=== PATIENT | female | born 1975 | race Caucasian/White ===

== ENCOUNTER 2021-05-10 14:03 | Inpatient (IN) | payer BC ==
[~2021-05-10] VITALS: Ht 165.1 cm; Wt 94.1 kg
[2021-05-10] MEDS ORDERED: SODIUM CHLORIDE 0.9% 1,000 ML IV ONE (14:45)
[2021-05-10 15:09] LABS: BASOPHILS % 0.6 % (0.0-2.0); EOSINOPHILS % 0.1 % (0.0-5.0); HEMATOCRIT. 31.8 % (36.0-48.0); HEMOGLOBIN. 10.1 g/dL (12.0-16.0); LYMPHOCYTES % 16.3 % (20.0-50.0); MEAN CORPUSCULAR HEMOGLOBIN 31.7 pg (28.0-32.0); MEAN CORPUSCULAR VOLUME 99.6 fL (81.0-99.0); MEAN PLATELET VOLUME 8.9 fl (7.4-10.4); MONOCYTES % 3.3 % (2.0-8.0); NEUTROPHILS % 79.7 % (40.0-76.0); PLATELET 159 x1000/uL (130-400); RED BLOOD CELL COUNT 3.19 mill/uL (4.2-5.4); RED CELL DISTRIBUTION WIDTH 23.3 % (11.6-14.6)
[2021-05-10 15:16] LABS: CHLORIDE 111 mEq/L (98-107)
[2021-05-10 15:21] LABS: ETHANOL BLOOD < 10 mg/dL
[2021-05-10 15:33] LABS: CLARITY URINE CLEAR (CLEAR); COLOR URINE DARK YELLOW (YELLOW); KETONES URINE NEGATIVE (NEGATIVE); LEUKOCYTE ESTERASE URINE NEGATIVE (NEGATIVE); NITRITE URINE NEGATIVE (NEGATIVE); OCCULT BLOOD URINE NEGATIVE (NEGATIVE); PH URINE 6.5 (4.5-8.0); PROTEIN URINE NEGATIVE (NEGATIVE); SPECIFIC GRAVITY URINE 1.015 (1.005-1.030); UROBILINOGEN URINE 0.2 E.U./dL (0.2-1.0)
[2021-05-10 15:34] LABS: PLATELET ESTIMATE NORMAL
[2021-05-10 16:12] LABS: *AMPHETAMINES SCREEN URINE NEGATIVE (NEGATIVE); *BARBITURATES SCREEN URINE NEGATIVE (NEGATIVE); CANNABINOID URINE SCREEN NEGATIVE (NEGATIVE); OPIATES URINE SCREEN NEGATIVE (NEGATIVE); PHENCYCLIDINE URINE SCREEN NEGATIVE (NEGATIVE)
[2021-05-10 16:13] LABS: *BENZODIAZEPINES SCREEN URINE NEGATIVE (NEGATIVE); *COCAINE SCREEN URINE NEGATIVE (NEGATIVE); METHADONE URINE SCREEN NEGATIVE (NEGATIVE)
[2021-05-10] MEDS ORDERED: AZITHROMYCIN 500 MG in DEXT 5% WATER 250 ML IV ONE (17:15)
[2021-05-10] MEDS ORDERED: SODIUM CHLORIDE 0.9% 1000ML BAG (SEPSIS BOLUS) IV ONE (17:15)
[2021-05-10] MEDS ORDERED: LACTULOSE 20G/30ML UDC PO ONE (17:15)
[2021-05-10] MEDS ORDERED: CEFTRIAXONE 1 G PREMIX 50 ML IV ONE (17:15)
[2021-05-10] MEDS ORDERED: ONDANSETRON HCL 4MG/2ML INJ IV STA (19:23)
[2021-05-10] MEDS ORDERED: MORPHINE SULFATE 4 MG/ML CPJ (NOT FOR IM USE) IV STA (19:23)
[2021-05-10 23:00] VITALS: BP 151/68
[2021-05-10] MEDS ORDERED: DULO60CA44 PO (23:07)
[2021-05-10] MEDS ORDERED: CALC-1249 PO (23:07)
[2021-05-10] MEDS ORDERED: FERR-71 PO (23:07)
[2021-05-10] MEDS ORDERED: LACT10SO7 PO (23:07)
[2021-05-10] MEDS ORDERED: LEVO75TA PO (23:07)
[2021-05-10] MEDS ORDERED: FURO-151 PO (23:07)
[2021-05-10] MEDS ORDERED: KEPP500 PO (23:07)
[2021-05-10] MEDS ORDERED: ACET600C5 PO (23:07)
[2021-05-10] MEDS ORDERED: ESCI20TA PO (23:07)
[2021-05-10] MEDS ORDERED: LACT1CAP56 PO (23:07)
[2021-05-10] MEDS ORDERED: GARL600T2 PO (23:07)
[2021-05-10] MEDS ORDERED: MAGN100T6 PO (23:07)
[2021-05-10] MEDS ORDERED: FOLI-43 PO (23:07)
[2021-05-10] MEDS ORDERED: MELA10TA3 PO (23:07)
[2021-05-10] MEDS ORDERED: POTA-79 PO (23:20)
[2021-05-10] MEDS ORDERED: THIA100T88 PO (23:20)
[2021-05-10] MEDS ORDERED: PREG150C PO (23:20)
[2021-05-10] MEDS ORDERED: SPIR50TA5 PO (23:20)
[2021-05-10] MEDS ORDERED: SUCR1TAB30 PO (23:20)
[2021-05-10] MEDS ORDERED: PANT40SU PO (23:20)
[2021-05-10] MEDS ORDERED: PRED10TA23 PO (23:20)
[2021-05-10] MEDS ORDERED: DICY10SO PO (23:20)
[2021-05-10] MEDS ORDERED: OXYC-662 PO (23:20)
[2021-05-10] MEDS ORDERED: RIFA550T PO (23:20)
[2021-05-10] MEDS ORDERED: BENZ-16 PO (23:20)
[2021-05-10] MEDS ORDERED: SUMA100T PO (23:25)
[2021-05-10] MEDS ORDERED: PROM12.513 PO (23:25)
[2021-05-10] MEDS ORDERED: ALBU18HF2 IH (23:25)
[2021-05-10] MEDS ORDERED: TIZA4TAB5 PO (23:25)
[2021-05-11] VITALS: BP 139/62
[2021-05-11] MEDS ORDERED: ONDANSETRON HCL 4MG/2ML INJ IV PRN (00:30)
[2021-05-11] MEDS ORDERED: HYDROCODONE/ACETAMINOPHEN 5/325MG TABLET PO PRN (00:30)
[2021-05-11] MEDS ORDERED: ACETAMINOPHEN 325MG TABLET PO PRN (00:30)
[2021-05-11] MEDS: LORAZEPAM 2MG/ML CPJ IV PRN (00:58)
[2021-05-11] MEDS ORDERED: LEVETIRACETAM 500MG TABLET PO SCH (01:45)
[2021-05-11] MEDS ORDERED: PREGABALIN 75MG CAPSULE PO SCH (01:45)
[2021-05-11] MEDS ORDERED: DICYCLOMINE HCL 10MG CAPSULE PO PRN ×2 (03:00→21:30)
[2021-05-11 04:00] VITALS: BP 156/80
[2021-05-11] MEDS: LACTULOSE 20G/30ML UDC PO SCH ×3 (05:29→22:18)
[2021-05-11] MEDS: HEPARIN 5000 UNITS/ML VIAL SUBCUT SCH ×3 (05:29→22:24)
[2021-05-11 06:06] LABS: CHLORIDE 111 mEq/L (98-107)
[2021-05-11 06:19] LABS: BASOPHILS % 0.5 % (0.0-2.0); EOSINOPHILS % 1.9 % (0.0-5.0); HEMATOCRIT. 32.1 % (36.0-48.0); HEMOGLOBIN. 10.3 g/dL (12.0-16.0); LYMPHOCYTES % 24.4 % (20.0-50.0); MEAN CORPUSCULAR HEMOGLOBIN 31.9 pg (28.0-32.0); MEAN CORPUSCULAR VOLUME 100.1 fL (81.0-99.0); MEAN PLATELET VOLUME 8.6 fl (7.4-10.4); MONOCYTES % 5.5 % (2.0-8.0); NEUTROPHILS % 67.7 % (40.0-76.0); PLATELET 151 x1000/uL (130-400); RED BLOOD CELL COUNT 3.21 mill/uL (4.2-5.4); RED CELL DISTRIBUTION WIDTH 23.1 % (11.6-14.6)
[2021-05-11 08:00] VITALS: BP 146/74
[2021-05-11] MEDS: PREDNISONE 10MG TABLET PO SCH (08:09)
[2021-05-11] MEDS: PREGABALIN 75MG CAPSULE PO SCH ×2 (08:09→23:56)
[2021-05-11] MEDS: LEVETIRACETAM 500MG TABLET PO SCH ×2 (08:09→22:17)
[2021-05-11] MEDS: DULOXETINE HCL 60MG DR CAPSULE PO SCH (08:09)
[2021-05-11] MEDS: POTASSIUM CHLORIDE 20MEQ TABLET SR PO SCH (08:09)
[2021-05-11] MEDS: FUROSEMIDE 40MG TABLET PO SCH ×2 (08:09→22:17)
[2021-05-11] MEDS: RIFAXIMIN 550 MG TABLET PO SCH ×2 (08:09→23:42)
[2021-05-11] MEDS: PANTOPRAZOLE 40MG DR TABLET PO SCH (08:09)
[2021-05-11] MEDS: LEVOTHYROXINE SODIUM 75MCG TABLET PO SCH (08:09)
[2021-05-11] MEDS ORDERED: FUROSEMIDE 40MG TABLET PO SCH (09:00)
[2021-05-11 12:00] VITALS: BP 122/61
[2021-05-11] MEDS ORDERED: NALOXONE HCL 0.4MG/ML VIAL IV PRN (12:00)
[2021-05-11 16:00] VITALS: BP 141/69
[2021-05-11] MEDS: OXYCODONE HCL 5MG TABLET PO PRN (18:53)
[2021-05-11 20:00] VITALS: BP 124/66
[2021-05-11] MEDS ORDERED: ALBUTEROL (0.083%) 2.5MG/3ML NEB HHN PRN (21:30)
[2021-05-11] MEDS ORDERED: PROMETHAZINE HCL 25MG TABLET PO PRN (21:30)
[2021-05-11] MEDS ORDERED: NON FORMULARY PATIENT HOME MED XX SCH (21:30)
[2021-05-11] MEDS: CEFTRIAXONE 1,000 MG in DEXTROSE 5% WATER 50 ML IV SCH (22:25)
[2021-05-11] MEDS: PROMETHAZINE HCL 25MG TABLET PO PRN (23:43)
[2021-05-12] VITALS: BP 145/67
[2021-05-12] MEDS: LORAZEPAM 2MG/ML CPJ IV PRN (00:24)
[2021-05-12] MEDS: OXYCODONE HCL 5MG TABLET PO PRN ×3 (01:19→18:45)
[2021-05-12] MEDS: ALBUTEROL (0.083%) 2.5MG/3ML NEB HHN SCH ×5 (01:25→23:58)
[2021-05-12 05:30] VITALS: BP 139/94
[2021-05-12] MEDS: LEVOTHYROXINE SODIUM 75MCG TABLET PO SCH (07:00)
[2021-05-12] MEDS: PANTOPRAZOLE 40MG DR TABLET PO SCH (07:00)
[2021-05-12] MEDS: BENZONATATE 100MG CAPSULE PO PRN ×2 (07:00→22:10)
[2021-05-12] MEDS: HEPARIN 5000 UNITS/ML VIAL SUBCUT SCH ×3 (07:01→22:09)
[2021-05-12] MEDS: LACTULOSE 20G/30ML UDC PO SCH ×3 (07:01→22:08)
[2021-05-12 08:00] VITALS: BP 145/61
[2021-05-12 08:15] LABS: BG BASE EXCESS -2.6 mmol/L (-2.0-2.0); BG CARBOXYHEMOGLOBIN 0.9 % (0.5-1.5); BG DEOXYHEMOGLOBIN 2.6 % (0.0-5.0); BG FRACTION INSPIRED OXYGEN 28; BG HCO3 ACT 21.7 mmol/L (22.0-26.0); BG METHEMOGLOBIN 0.2 % (0.0-1.5); BG OXYGEN SATURATION 97.4 % (92.0-98.5); BG OXYHEMOGLOBIN 96.3 % (94.0-97.0); BG PCO2 35.3 mmHg (35.0-45.0); BG PH 7.406 (7.350-7.450); BG PO2 100.1 mmHg (75.0-100.0); BG SAMPLE SITE LEFT RADIAL; BG TOTAL HEMOGLOBIN 10.2 g/dL (12.0-18.0); BG VENT MODE NASAL CANNULA
[2021-05-12] MEDS: DULOXETINE HCL 60MG DR CAPSULE PO SCH (10:04)
[2021-05-12] MEDS: PREGABALIN 75MG CAPSULE PO SCH ×2 (10:06→22:08)
[2021-05-12] MEDS: LEVETIRACETAM 500MG TABLET PO SCH ×2 (10:08→22:10)
[2021-05-12] MEDS: POTASSIUM CHLORIDE 20MEQ TABLET SR PO SCH (10:08)
[2021-05-12] MEDS: RIFAXIMIN 550 MG TABLET PO SCH ×2 (10:09→22:16)
[2021-05-12] MEDS: PREDNISONE 10MG TABLET PO SCH (10:09)
[2021-05-12 12:00] VITALS: BP 143/61
[2021-05-12] MEDS: SPIRONOLACTONE 50MG TABLET PO SCH (13:12)
[2021-05-12] MEDS: CITALOPRAM HYDROBROMIDE 10MG TABLET PO SCH ×2 (13:13→17:12)
[2021-05-12 16:00] VITALS: BP 155/85
[2021-05-12] MEDS ORDERED: VANCOMYCIN 2,000 MG in DEXT 5% WATER 500 ML IV SCH (16:00)
[2021-05-12 16:13] LABS: CHLORIDE 105 mEq/L (98-107)
[2021-05-12] MEDS ORDERED: POTASSIUM CHLORIDE 20MEQ TABLET SR PO NR (17:00)
[2021-05-12] MEDS: FUROSEMIDE 40MG TABLET PO SCH ×2 (17:11→22:17)
[2021-05-12] MEDS ORDERED: LACTULOSE 300 ML in WATER FOR IRRIGATION,STERILE 700 ML IR NR (18:30)
[2021-05-12 20:00] VITALS: BP 128/69
[2021-05-12] MEDS: CEFTRIAXONE 1,000 MG in DEXTROSE 5% WATER 50 ML IV SCH (22:35)
[2021-05-13] VITALS: BP 142/78
[2021-05-13] MEDS: OXYCODONE HCL 5MG TABLET PO PRN ×3 (00:48→16:23)
[2021-05-13 04:00] VITALS: BP 158/90
[2021-05-13] MEDS ORDERED: VANCOMYCIN 1 G PREMIX 200 ML IV SCH ×2 (04:00→17:00)
[2021-05-13 06:14] LABS: BASOPHILS % 0.9 % (0.0-2.0); EOSINOPHILS % 2.4 % (0.0-5.0); HEMATOCRIT. 30.3 % (36.0-48.0); HEMOGLOBIN. 9.6 g/dL (12.0-16.0); LYMPHOCYTES % 19.3 % (20.0-50.0); MEAN CORPUSCULAR HEMOGLOBIN 31.6 pg (28.0-32.0); MEAN CORPUSCULAR VOLUME 99.9 fL (81.0-99.0); MEAN PLATELET VOLUME 9.4 fl (7.4-10.4); MONOCYTES % 6.2 % (2.0-8.0); NEUTROPHILS % 71.2 % (40.0-76.0); PLATELET 131 x1000/uL (130-400); RED BLOOD CELL COUNT 3.03 mill/uL (4.2-5.4); RED CELL DISTRIBUTION WIDTH 21.7 % (11.6-14.6)
[2021-05-13 06:19] LABS: CHLORIDE 108 mEq/L (98-107)
[2021-05-13] MEDS: LACTULOSE 20G/30ML UDC PO SCH ×3 (06:24→20:33)
[2021-05-13] MEDS: PANTOPRAZOLE 40MG DR TABLET PO SCH (06:25)
[2021-05-13] MEDS: LEVOTHYROXINE SODIUM 75MCG TABLET PO SCH (06:25)
[2021-05-13] MEDS: HEPARIN 5000 UNITS/ML VIAL SUBCUT SCH ×3 (06:47→20:33)
[2021-05-13 08:00] VITALS: BP 132/78
[2021-05-13] MEDS: PREDNISONE 10MG TABLET PO SCH (08:58)
[2021-05-13] MEDS: DULOXETINE HCL 60MG DR CAPSULE PO SCH (08:58)
[2021-05-13] MEDS: FUROSEMIDE 40MG TABLET PO SCH ×2 (08:58→20:33)
[2021-05-13] MEDS: SPIRONOLACTONE 50MG TABLET PO SCH (08:58)
[2021-05-13] MEDS: RIFAXIMIN 550 MG TABLET PO SCH ×2 (08:58→20:33)
[2021-05-13] MEDS: PREGABALIN 75MG CAPSULE PO SCH ×2 (08:59→20:33)
[2021-05-13] MEDS: CITALOPRAM HYDROBROMIDE 10MG TABLET PO SCH ×2 (08:59→16:13)
[2021-05-13] MEDS: POTASSIUM CHLORIDE 20MEQ TABLET SR PO SCH (08:59)
[2021-05-13] MEDS: LEVETIRACETAM 500MG TABLET PO SCH ×2 (09:39→20:33)
[2021-05-13] MEDS: ALBUTEROL (0.083%) 2.5MG/3ML NEB HHN SCH ×3 (09:53→19:51)
[2021-05-13 12:00] VITALS: BP 136/67
[2021-05-13] MEDS ORDERED: PANTOPRAZOLE 40MG DR TABLET PO SCH (13:15)
[2021-05-13] MEDS: SUMATRIPTAN SUCCINATE 25MG TABLET PO PRN (14:50)
[2021-05-13] MEDS: LORAZEPAM 2MG/ML CPJ IV PRN ×2 (15:29→21:34)
[2021-05-13 16:00] VITALS: BP 146/68
[2021-05-13] MEDS: PROMETHAZINE HCL 25MG TABLET PO PRN (16:13)
[2021-05-13 20:00] VITALS: BP 164/74
[2021-05-13] MEDS: CEFTRIAXONE 1,000 MG in DEXTROSE 5% WATER 50 ML IV SCH (20:08)
[2021-05-14] VITALS: BP 160/83
[2021-05-14] MEDS: ALBUTEROL (0.083%) 2.5MG/3ML NEB HHN SCH ×3 (01:57→12:24)
[2021-05-14 04:00] VITALS: BP 131/68
[2021-05-14] MEDS: LACTULOSE 20G/30ML UDC PO SCH ×2 (05:44→13:09)
[2021-05-14] MEDS: LEVOTHYROXINE SODIUM 75MCG TABLET PO SCH (05:44)
[2021-05-14] MEDS: HEPARIN 5000 UNITS/ML VIAL SUBCUT SCH ×2 (05:44→13:08)
[2021-05-14] MEDS: OXYCODONE HCL 5MG TABLET PO PRN ×2 (06:13→13:09)
[2021-05-14] MEDS: SUMATRIPTAN SUCCINATE 25MG TABLET PO PRN (06:23)
[2021-05-14] MEDS ORDERED: PANTOPRAZOLE 40MG DR TABLET PO SCH (06:40)
[2021-05-14 07:32] LABS: CHLORIDE 108 mEq/L (98-107)
[2021-05-14 08:00] VITALS: BP 143/69
[2021-05-14] MEDS ORDERED: POTASSIUM CHLORIDE 20MEQ TABLET SR PO NR ×2 (08:39→14:30)
[2021-05-14] MEDS: PREGABALIN 75MG CAPSULE PO SCH (08:53)
[2021-05-14] MEDS: CITALOPRAM HYDROBROMIDE 10MG TABLET PO SCH (08:54)
[2021-05-14] MEDS: LEVETIRACETAM 500MG TABLET PO SCH (08:54)
[2021-05-14] MEDS: DULOXETINE HCL 60MG DR CAPSULE PO SCH (08:54)
[2021-05-14] MEDS: PREDNISONE 10MG TABLET PO SCH (08:54)
[2021-05-14] MEDS: SPIRONOLACTONE 50MG TABLET PO SCH (08:54)
[2021-05-14] MEDS: POTASSIUM CHLORIDE 20MEQ TABLET SR PO SCH (08:55)
[2021-05-14] MEDS: RIFAXIMIN 550 MG TABLET PO SCH (08:55)
[2021-05-14] MEDS: FUROSEMIDE 40MG TABLET PO SCH (08:55)
[2021-05-14] MEDS: LORAZEPAM 2MG/ML CPJ IV PRN (09:08)
[2021-05-14] MEDS ORDERED: ACETAMINOPHEN 325MG TABLET PO PRN (13:15)
[2021-05-14] MEDS ORDERED: LORAZEPAM 0.5MG TABLET PO NR (14:15)
[2021-05-14 14:19] VITALS: BP 120/66
== END 2021-05-14 15:10 | disposition home or self-care (01) | DRG 853 ==
LOC: ER 14:03 → 7WST 19:48 → ENRESERV 20:42 → 7EST 05-11 15:01
PROVIDERS: ADMIT Internal Medicine; ATTEND Internal Medicine
PROC: 0JBQ0ZZ Excision of Right Foot Subcutaneous Tissue and Fascia, Open Approach (ICD-10-PCS; principal; 2021-05-12)
DX: A41.9 Sepsis, unspecified organism (principal); J18.9 Pneumonia, unspecified organism; E43 Unspecified severe protein-calorie malnutrition; G93.41 Metabolic encephalopathy; T81.31XA Disruption of external operation (surgical) wound, not elsewhere classified, initial encounter; E87.2 Acidosis; D64.9 Anemia, unspecified; E66.9 Obesity, unspecified; E87.6 Hypokalemia; G40.909 Epilepsy, unspecified, not intractable, without status epilepticus; I10 Essential (primary) hypertension; K70.30 Alcoholic cirrhosis of liver without ascites; M79.7 Fibromyalgia; E87.8 Other disorders of electrolyte and fluid balance, not elsewhere classified; K72.90 Hepatic failure, unspecified without coma; G43.909 Migraine, unspecified, not intractable, without status migrainosus; R65.20 Severe sepsis without septic shock; Y83.8 Other surgical procedures as the cause of abnormal reaction of the patient, or of later complication, without mention of misadventure at the time of the procedure; Z20.822 Contact with and (suspected) exposure to COVID-19; Z91.81 History of falling; Y92.89 Other specified places as the place of occurrence of the external cause; Z68.34 Body mass index [BMI] 34.0-34.9, adult
CPT/HCPCS: 36415; 36600; 71045; 76700; 80048; 80053; 80202; 80305; 80320; 81003; 82140; 82375; 82805; 82962; 83605; 84145; 84484; 85025; 93005; 94640; 97161; 99291; C1893; J0456; J0696; J1644; J2060; J2405; J3370; J7030; J7040; J7060; J7512; Q0169; U0003; U0005; G0480

== ENCOUNTER 2021-05-14 23:54 | Inpatient (IN) | payer BC ==
[~2021-05-14] VITALS: Ht 170.2 cm; Wt 109.1 kg
[~2021-05-14 23:54] MED LIST: ACET600C5 PO; ALBU18HF2 IH; BENZ-16 PO; CALC-1249 PO; DICY10SO PO; DULO60CA44 PO; ESCI20TA PO; FERR-71 PO; FOLI-43 PO; FURO-151 PO; GARL600T2 PO; KEPP500 PO; LACT10SO7 PO; LACT1CAP56 PO; LEVO75TA PO; MAGN100T6 PO; MELA10TA3 PO; OXYC-662 PO; PANT40SU PO; POTA-79 PO; PRED10TA23 PO; PREG150C PO; PROM12.513 PO; RIFA550T PO; SPIR50TA5 PO; SUCR1TAB30 PO; SUMA100T PO; THIA100T88 PO; TIZA4TAB5 PO
[2021-05-15] MEDS ORDERED: MORPHINE SULFATE 4 MG/ML CPJ (NOT FOR IM USE) IV STA (00:01)
[2021-05-15] MEDS ORDERED: ONDANSETRON HCL 4MG/2ML INJ IV STA (00:01)
[2021-05-15] MEDS ORDERED: MIDAZOLAM HCL 50 MG in DEXTROSE 5% WATER 40 ML IV ONE ×2 (00:15→03:00)
[2021-05-15] MEDS ORDERED: PROPOFOL 10MG/ML 100ML 100 ML IV ONE ×2 (00:15→03:00)
[2021-05-15] MEDS ORDERED: SUCCINYLCHOLINE CHLORIDE 200MG/10ML IV ONE ×3 (00:15→08:58)
[2021-05-15] MEDS ORDERED: ETOMIDATE 2MG/ML 10ML VIAL IV ONE ×3 (00:15→08:58)
[2021-05-15 00:47] LABS: BASOPHILS % 0.3 % (0.0-2.0); EOSINOPHILS % 2.6 % (0.0-5.0); HEMOGLOBIN. 9.9 g/dL (12.0-16.0); LYMPHOCYTES % 17.9 % (20.0-50.0); MEAN CORPUSCULAR HEMOGLOBIN 32.1 pg (28.0-32.0); MEAN PLATELET VOLUME 8.4 fl (7.4-10.4); NEUTROPHILS % 71.2 % (40.0-76.0); PLATELET 132 x1000/uL (130-400); RED BLOOD CELL COUNT 3.07 mill/uL (4.2-5.4); RED CELL DISTRIBUTION WIDTH 21.2 % (11.6-14.6)
[2021-05-15] MEDS: MIDAZOLAM HCL 100 MG in SODIUM CHLORIDE 0.9% 100 ML IV PRN ×3 (00:49→23:13)
[2021-05-15 00:53] LABS: CHLORIDE 108 mEq/L (98-107)
[2021-05-15 05:04] LABS: BG BASE EXCESS 2.8 mmol/L (-2.0-2.0); BG CARBOXYHEMOGLOBIN 0.9 % (0.5-1.5); BG DEOXYHEMOGLOBIN 0.9 % (0.0-5.0); BG FRACTION INSPIRED OXYGEN 50; BG HCO3 ACT 28.5 mmol/L (22.0-26.0); BG METHEMOGLOBIN 0.1 % (0.0-1.5); BG OXYGEN SATURATION 99.1 % (92.0-98.5); BG OXYHEMOGLOBIN 98.1 % (94.0-97.0); BG PCO2 49.8 mmHg (35.0-45.0); BG PH 7.376 (7.350-7.450); BG PO2 151.8 mmHg (75.0-100.0); BG SAMPLE SITE LEFT BRACHIAL; BG TOTAL HEMOGLOBIN 9.5 g/dL (12.0-18.0); BG VENT MODE VENT - AC
[2021-05-15] MEDS ORDERED: PROPOFOL 10MG/ML 100ML 100 ML IV SCH (08:15)
[2021-05-15] MEDS ORDERED: SODIUM CHLORIDE 0.9% 10ML VIAL ONE (08:58)
[2021-05-15] MEDS ORDERED: VECURONIUM BROMIDE 10 MG/VIAL IV ONE (08:58)
[2021-05-15] MEDS: PROPOFOL 10MG/ML 100ML 100 ML IV PRN ×2 (09:12→16:04)
[2021-05-15] MEDS ORDERED: ONDANSETRON HCL 4MG/2ML INJ IV PRN (09:15)
[2021-05-15] MEDS ORDERED: CEFTRIAXONE 1 G PREMIX 50 ML IV NR (09:15)
[2021-05-15] MEDS: SODIUM CHLORIDE 0.9% 1,000 ML IV SCH ×2 (09:57→19:51)
[2021-05-15] MEDS: CEFEPIME 2,000 MG in DEXT 5% WATER 100 ML IV SCH (16:04)
[2021-05-15 17:19] LABS: *AMPHETAMINES SCREEN URINE NEGATIVE (NEGATIVE); *BARBITURATES SCREEN URINE NEGATIVE (NEGATIVE); *COCAINE SCREEN URINE NEGATIVE (NEGATIVE); METHADONE URINE SCREEN NEGATIVE (NEGATIVE)
[2021-05-15 17:20] LABS: *BENZODIAZEPINES SCREEN URINE PRESUMTIVE POSITIVE (NEGATIVE); CANNABINOID URINE SCREEN NEGATIVE (NEGATIVE); OPIATES URINE SCREEN PRESUMTIVE POSITIVE (NEGATIVE); PHENCYCLIDINE URINE SCREEN NEGATIVE (NEGATIVE)
[2021-05-16] MEDS: CEFEPIME 2,000 MG in DEXT 5% WATER 100 ML IV SCH ×3 (00:36→14:36)
[2021-05-16 04:38] LABS: BASOPHILS % 0.3 % (0.0-2.0); EOSINOPHILS % 3.9 % (0.0-5.0); HEMATOCRIT. 29.8 % (36.0-48.0); HEMOGLOBIN. 9.1 g/dL (12.0-16.0); LYMPHOCYTES % 13.5 % (20.0-50.0); MEAN CORPUSCULAR HEMOGLOBIN 31.9 pg (28.0-32.0); MEAN PLATELET VOLUME 8.9 fl (7.4-10.4); MONOCYTES % 9.5 % (2.0-8.0); NEUTROPHILS % 72.8 % (40.0-76.0); PLATELET 112 x1000/uL (130-400); RED BLOOD CELL COUNT 2.87 mill/uL (4.2-5.4); RED CELL DISTRIBUTION WIDTH 22.1 % (11.6-14.6)
[2021-05-16 04:43] LABS: CHLORIDE 111 mEq/L (98-107)
[2021-05-16 04:51] LABS: HDL CHOLESTEROL 43 mg/dL (40-59); LDL CHOLESTEROL 73 mg/dL (5-100)
[2021-05-16] MEDS: SODIUM CHLORIDE 0.9% 1,000 ML IV SCH ×2 (05:19→15:16)
[2021-05-16 08:22] LABS: BG CARBOXYHEMOGLOBIN 0.6 % (0.5-1.5); BG DEOXYHEMOGLOBIN 1.7 % (0.0-5.0); BG HCO3 ACT 23.7 mmol/L (22.0-26.0); BG OXYGEN SATURATION 98.3 % (92.0-98.5); BG OXYHEMOGLOBIN 97.7 % (94.0-97.0); BG PCO2 34.7 mmHg (35.0-45.0); BG PH 7.452 (7.350-7.450); BG PO2 115.6 mmHg (75.0-100.0); BG SAMPLE SITE RIGHT RADIAL; BG TOTAL HEMOGLOBIN 9.9 g/dL (12.0-18.0); BG VENT MODE VENT - AC
[2021-05-16] MEDS ORDERED: PROPOFOL 10 MG/ML 100 ML IV PRN (08:31)
[2021-05-16] MEDS ORDERED: CEFTRIAXONE 1,000 MG in DEXTROSE 5% WATER 50 ML IV SCH (09:00)
[2021-05-16] MEDS: METRONIDAZOLE 500 MG PREMIX 100 ML IV SCH (18:23)
[2021-05-16] MEDS: MIDAZOLAM HCL 100 MG in SODIUM CHLORIDE 0.9% 100 ML IV PRN (18:24)
[2021-05-17] MEDS: METRONIDAZOLE 500 MG PREMIX 100 ML IV SCH ×3 (01:27→17:12)
[2021-05-17] MEDS: CEFEPIME 2,000 MG in DEXT 5% WATER 100 ML IV SCH ×3 (01:29→21:44)
[2021-05-17] MEDS: SODIUM CHLORIDE 0.9% 1,000 ML IV SCH ×2 (01:30→11:38)
[2021-05-17] MEDS: MIDAZOLAM HCL 100 MG in SODIUM CHLORIDE 0.9% 100 ML IV PRN ×2 (04:53→15:41)
[2021-05-17 05:12] LABS: CHLORIDE 114 mEq/L (98-107)
[2021-05-17 05:15] LABS: BASOPHILS % 0.2 % (0.0-2.0); HEMATOCRIT. 29.4 % (36.0-48.0); HEMOGLOBIN. 9.5 g/dL (12.0-16.0); LYMPHOCYTES % 12.8 % (20.0-50.0); MEAN CORPUSCULAR HEMOGLOBIN 32.1 pg (28.0-32.0); MEAN CORPUSCULAR VOLUME 99.6 fL (81.0-99.0); MONOCYTES % 9.1 % (2.0-8.0); NEUTROPHILS % 74.9 % (40.0-76.0); RED BLOOD CELL COUNT 2.95 mill/uL (4.2-5.4); RED CELL DISTRIBUTION WIDTH 21.4 % (11.6-14.6)
[2021-05-17] MEDS ORDERED: FENTANYL CITRATE/PF 1,000 MCG in SODIUM CHLORIDE 0.9% 80 ML IV PRN (08:45)
[2021-05-17] MEDS ORDERED: PROPOFOL 10MG/ML 100ML 100 ML IV PRN (08:45)
[2021-05-17] MEDS ORDERED: IPRATROPIUM/ALBUTEROL 0.5-3(2.5)MG/3ML NEB HHN PRN (08:45)
[2021-05-17] MEDS: FENTANYL CITRATE 2,500 MCG in SODIUM CHLORIDE 0.9% 200 ML IV PRN (09:34)
[2021-05-17 09:55] LABS: HCG SCREEN NEGATIVE
[2021-05-17] MEDS: IPRATROPIUM/ALBUTEROL 0.5-3(2.5)MG/3ML NEB HHN SCH (12:18)
[2021-05-17 13:27] LABS: MEAN PLATELET VOLUME 8.7 fl (7.4-10.4); PLATELET 128 x1000/uL (130-400)
[2021-05-17] MEDS: LACTULOSE 20G/30ML UDC PO SCH (15:41)
[2021-05-17 23:45] VITALS: BP 148/73
[2021-05-18] VITALS (44 sets, daily range): BP systolic 118–154; BP diastolic 51–112
[2021-05-18] MEDS: SODIUM CHLORIDE 0.9% 1,000 ML IV SCH ×2 (00:45→09:30)
[2021-05-18] MEDS: METRONIDAZOLE 500 MG PREMIX 100 ML IV SCH ×3 (02:17→17:31)
[2021-05-18] MEDS: MIDAZOLAM HCL 100 MG in SODIUM CHLORIDE 0.9% 100 ML IV PRN (02:35)
[2021-05-18] MEDS: IPRATROPIUM/ALBUTEROL 0.5-3(2.5)MG/3ML NEB HHN SCH ×4 (06:00→18:00)
[2021-05-18] MEDS: CEFEPIME 2,000 MG in DEXT 5% WATER 100 ML IV SCH ×3 (06:49→22:31)
[2021-05-18 07:53] LABS: CHLORIDE 120 mEq/L (98-107)
[2021-05-18] MEDS: LACTULOSE 20G/30ML UDC PO SCH ×3 (09:30→22:31)
[2021-05-18 09:54] LABS: CLARITY URINE CLEAR (CLEAR); COLOR URINE DARK YELLOW (YELLOW); KETONES URINE TRACE (NEGATIVE); LEUKOCYTE ESTERASE URINE 1+ (NEGATIVE); NITRITE URINE NEGATIVE (NEGATIVE); OCCULT BLOOD URINE NEGATIVE (NEGATIVE); PROTEIN URINE TRACE (NEGATIVE); SPECIFIC GRAVITY URINE 1.026 (1.005-1.030); UROBILINOGEN URINE 0.2 E.U./dL (0.2-1.0)
[2021-05-18 09:57] LABS: BG BASE EXCESS -2.7 mmol/L (-2.0-2.0); BG CARBOXYHEMOGLOBIN 1.1 % (0.5-1.5); BG DEOXYHEMOGLOBIN 5.7 % (0.0-5.0); BG FRACTION INSPIRED OXYGEN 30; BG HCO3 ACT 22.2 mmol/L (22.0-26.0); BG METHEMOGLOBIN 0.3 % (0.0-1.5); BG OXYGEN SATURATION 94.2 % (92.0-98.5); BG OXYHEMOGLOBIN 92.9 % (94.0-97.0); BG PCO2 38.9 mmHg (35.0-45.0); BG PH 7.375 (7.350-7.450); BG PO2 77.5 mmHg (75.0-100.0); BG SAMPLE SITE RIGHT RADIAL; BG VENT MODE VENT - AC
[2021-05-18] MEDS ORDERED: PROPOFOL 10MG/ML 100ML 100 ML IV PRN (10:00)
[2021-05-18 10:32] LABS: BASOPHILS % 0.9 % (0.0-2.0); EOSINOPHILS % 4.1 % (0.0-5.0); HEMATOCRIT. 31.5 % (36.0-48.0); HEMOGLOBIN. 9.6 g/dL (12.0-16.0); LYMPHOCYTES % 12.4 % (20.0-50.0); MEAN CORPUSCULAR HEMOGLOBIN 31.6 pg (28.0-32.0); MEAN CORPUSCULAR VOLUME 103.7 fL (81.0-99.0); NEUTROPHILS % 73.6 % (40.0-76.0); PLATELET 92 x1000/uL (130-400); RED BLOOD CELL COUNT 3.04 mill/uL (4.2-5.4); RED CELL DISTRIBUTION WIDTH 21.2 % (11.6-14.6)
[2021-05-18] MEDS: PANTOPRAZOLE SODIUM 40 MG/VIAL IV SCH (11:18)
[2021-05-18 11:38] LABS: INR 1.4; PROTHROMBIN TIME 15.1 sec (9.6-11.0)
[2021-05-18] MEDS ORDERED: CHOL500051 PO (12:22)
[2021-05-18] MEDS ORDERED: strontium PO (12:22)
[2021-05-18] MEDS ORDERED: VITA1CAP PO (12:22)
[2021-05-18] MEDS ORDERED: SODIUM BICARBONATE 4% (2.4MEQ) 5ML VIAL IV ONE (13:49)
[2021-05-18] MEDS: DIPHENHYDRAMINE 50MG/ML VIAL IV SCH (17:31)
[2021-05-19] VITALS (49 sets, daily range): BP systolic 93–145; BP diastolic 54–72
[2021-05-19] MEDS: DIPHENHYDRAMINE 50MG/ML VIAL IV SCH ×4 (01:00→17:40)
[2021-05-19] MEDS: METRONIDAZOLE 500 MG PREMIX 100 ML IV SCH ×3 (01:00→17:40)
[2021-05-19] MEDS: IPRATROPIUM/ALBUTEROL 0.5-3(2.5)MG/3ML NEB HHN SCH ×5 (03:00→20:34)
[2021-05-19] MEDS: LACTULOSE 20G/30ML UDC PO SCH ×3 (05:40→21:36)
[2021-05-19] MEDS: CEFEPIME 2,000 MG in DEXT 5% WATER 100 ML IV SCH ×3 (05:40→21:36)
[2021-05-19 06:36] LABS: BASOPHILS % 0.8 % (0.0-2.0); EOSINOPHILS % 4.8 % (0.0-5.0); HEMATOCRIT. 32.3 % (36.0-48.0); LYMPHOCYTES % 14.5 % (20.0-50.0); MEAN CORPUSCULAR HEMOGLOBIN 31.4 pg (28.0-32.0); MEAN CORPUSCULAR VOLUME 101.2 fL (81.0-99.0); MEAN PLATELET VOLUME 8.6 fl (7.4-10.4); MONOCYTES % 9.6 % (2.0-8.0); NEUTROPHILS % 70.3 % (40.0-76.0); PLATELET 116 x1000/uL (130-400); RED BLOOD CELL COUNT 3.19 mill/uL (4.2-5.4); RED CELL DISTRIBUTION WIDTH 20.6 % (11.6-14.6)
[2021-05-19 06:37] LABS: CHLORIDE 120 mEq/L (98-107)
[2021-05-19] MEDS: PANTOPRAZOLE SODIUM 40 MG/VIAL IV SCH (09:23)
[2021-05-19 09:42] LABS: BG BASE EXCESS -5.4 mmol/L (-2.0-2.0); BG CARBOXYHEMOGLOBIN 0.5 % (0.5-1.5); BG DEOXYHEMOGLOBIN 6.6 % (0.0-5.0); BG FRACTION INSPIRED OXYGEN 30; BG HCO3 ACT 20.7 mmol/L (22.0-26.0); BG METHEMOGLOBIN 0.3 % (0.0-1.5); BG OXYGEN SATURATION 93.3 % (92.0-98.5); BG OXYHEMOGLOBIN 92.6 % (94.0-97.0); BG PCO2 43.2 mmHg (35.0-45.0); BG PH 7.299 (7.350-7.450); BG PO2 78.4 mmHg (75.0-100.0); BG SAMPLE SITE RIGHT RADIAL; BG TOTAL HEMOGLOBIN 9.7 g/dL (12.0-18.0); BG VENT MODE VENT - AC
[2021-05-19 13:46] LABS: BG BASE EXCESS -4.2 mmol/L (-2.0-2.0); BG CARBOXYHEMOGLOBIN 0.9 % (0.5-1.5); BG DEOXYHEMOGLOBIN 3.9 % (0.0-5.0); BG FRACTION INSPIRED OXYGEN 40; BG HCO3 ACT 22.7 mmol/L (22.0-26.0); BG OXYGEN SATURATION 96.1 % (92.0-98.5); BG OXYHEMOGLOBIN 95.2 % (94.0-97.0); BG PCO2 49.5 mmHg (35.0-45.0); BG PH 7.279 (7.350-7.450); BG PO2 91.5 mmHg (75.0-100.0); BG SAMPLE SITE RIGHT RADIAL; BG TOTAL HEMOGLOBIN 10.7 g/dL (12.0-18.0); BG VENT MODE VENT - CPAP
[2021-05-19] MEDS: ENOXAPARIN 30MG/0.3ML SYR SUBCUT SCH ×2 (14:31→21:36)
[2021-05-19] MEDS: NYSTATIN/TRIAMCIN CREAM 15GM TOP SCH (17:40)
[2021-05-20] VITALS (47 sets, daily range): BP systolic 109–159; BP diastolic 51–95
[2021-05-20] MEDS: DIPHENHYDRAMINE 50MG/ML VIAL IV SCH ×4 (00:13→17:02)
[2021-05-20] MEDS: METRONIDAZOLE 500 MG PREMIX 100 ML IV SCH ×3 (00:13→17:02)
[2021-05-20] MEDS: IPRATROPIUM/ALBUTEROL 0.5-3(2.5)MG/3ML NEB HHN SCH ×4 (01:50→20:17)
[2021-05-20] MEDS: LACTULOSE 20G/30ML UDC PO SCH ×3 (06:18→21:24)
[2021-05-20] MEDS: CEFEPIME 2,000 MG in DEXT 5% WATER 100 ML IV SCH ×2 (06:18→13:18)
[2021-05-20 07:06] LABS: CHLORIDE 121 mEq/L (98-107)
[2021-05-20 07:10] LABS: BASOPHILS % 0.7 % (0.0-2.0); EOSINOPHILS % 4.4 % (0.0-5.0); HEMOGLOBIN. 9.2 g/dL (12.0-16.0); LYMPHOCYTES % 17.2 % (20.0-50.0); MEAN CORPUSCULAR HEMOGLOBIN 31.7 pg (28.0-32.0); MEAN CORPUSCULAR VOLUME 102.9 fL (81.0-99.0); MEAN PLATELET VOLUME 8.8 fl (7.4-10.4); NEUTROPHILS % 66.7 % (40.0-76.0); PLATELET 115 x1000/uL (130-400); RED BLOOD CELL COUNT 2.91 mill/uL (4.2-5.4)
[2021-05-20] MEDS: ENOXAPARIN 30MG/0.3ML SYR SUBCUT SCH ×2 (08:54→21:24)
[2021-05-20] MEDS: PANTOPRAZOLE SODIUM 40 MG/VIAL IV SCH (08:54)
[2021-05-20] MEDS: FENTANYL CITRATE 2,500 MCG in SODIUM CHLORIDE 0.9% 200 ML IV PRN (08:56)
[2021-05-20] MEDS: NYSTATIN/TRIAMCIN CREAM 15GM TOP SCH ×3 (08:56→17:02)
[2021-05-20] MEDS ORDERED: LACTULOSE 300 ML in WATER FOR IRRIGATION,STERILE 700 ML IR SCH (09:00)
[2021-05-20 09:13] LABS: BG BASE EXCESS -3.3 mmol/L (-2.0-2.0); BG CARBOXYHEMOGLOBIN 0.9 % (0.5-1.5); BG DEOXYHEMOGLOBIN 5.8 % (0.0-5.0); BG FRACTION INSPIRED OXYGEN 30; BG HCO3 ACT 22.2 mmol/L (22.0-26.0); BG METHEMOGLOBIN 0.2 % (0.0-1.5); BG OXYGEN SATURATION 94.1 % (92.0-98.5); BG OXYHEMOGLOBIN 93.1 % (94.0-97.0); BG PCO2 41.8 mmHg (35.0-45.0); BG PH 7.343 (7.350-7.450); BG PO2 77.6 mmHg (75.0-100.0); BG SAMPLE SITE RIGHT RADIAL; BG TOTAL HEMOGLOBIN 9.8 g/dL (12.0-18.0); BG VENT MODE VENT - AC
[2021-05-20] MEDS: MEROPENEM 1,000 MG in SODIUM CHLORIDE 0.9% 100 ML IV SCH (20:06)
[2021-05-20] MEDS: MICAFUNGIN 150 MG in SODIUM CHLORIDE 0.9% 100 ML IV SCH (21:24)
[2021-05-21] VITALS (50 sets, daily range): BP systolic 108–153; BP diastolic 47–89
[2021-05-21] MEDS: DIPHENHYDRAMINE 50MG/ML VIAL IV SCH ×4 (00:21→17:20)
[2021-05-21] MEDS: IPRATROPIUM/ALBUTEROL 0.5-3(2.5)MG/3ML NEB HHN SCH ×4 (02:08→20:58)
[2021-05-21] MEDS: MEROPENEM 1,000 MG in SODIUM CHLORIDE 0.9% 100 ML IV SCH ×3 (04:45→20:25)
[2021-05-21] MEDS: LACTULOSE 20G/30ML UDC PO SCH ×3 (05:22→22:24)
[2021-05-21 06:44] LABS: BASOPHILS % 0.9 % (0.0-2.0); EOSINOPHILS % 4.6 % (0.0-5.0); HEMATOCRIT. 29.9 % (36.0-48.0); HEMOGLOBIN. 9.3 g/dL (12.0-16.0); LYMPHOCYTES % 12.7 % (20.0-50.0); MEAN CORPUSCULAR HEMOGLOBIN 31.2 pg (28.0-32.0); MEAN CORPUSCULAR VOLUME 100.4 fL (81.0-99.0); MEAN PLATELET VOLUME 8.1 fl (7.4-10.4); MONOCYTES % 11.5 % (2.0-8.0); NEUTROPHILS % 70.3 % (40.0-76.0); PLATELET 143 x1000/uL (130-400); RED BLOOD CELL COUNT 2.98 mill/uL (4.2-5.4); RED CELL DISTRIBUTION WIDTH 20.1 % (11.6-14.6)
[2021-05-21 06:50] LABS: CHLORIDE 121 mEq/L (98-107)
[2021-05-21] MEDS: PANTOPRAZOLE SODIUM 40 MG/VIAL IV SCH (08:09)
[2021-05-21] MEDS: ENOXAPARIN 30MG/0.3ML SYR SUBCUT SCH ×2 (08:10→20:26)
[2021-05-21] MEDS: NYSTATIN/TRIAMCIN CREAM 15GM TOP SCH ×3 (08:11→17:34)
[2021-05-21] MEDS ORDERED: VECURONIUM BROMIDE 10 MG/VIAL IV ONE (08:29)
[2021-05-21] MEDS ORDERED: ETOMIDATE 2MG/ML 10ML VIAL IV ONE (08:29)
[2021-05-21 09:32] LABS: BG CARBOXYHEMOGLOBIN 0.5 % (0.5-1.5); BG DEOXYHEMOGLOBIN 1.9 % (0.0-5.0); BG FRACTION INSPIRED OXYGEN 40; BG HCO3 ACT 22.1 mmol/L (22.0-26.0); BG METHEMOGLOBIN 0.1 % (0.0-1.5); BG OXYGEN SATURATION 98.1 % (92.0-98.5); BG OXYHEMOGLOBIN 97.5 % (94.0-97.0); BG PCO2 50.2 mmHg (35.0-45.0); BG PH 7.261 (7.350-7.450); BG PO2 117.5 mmHg (75.0-100.0); BG SAMPLE SITE RIGHT RADIAL; BG TOTAL HEMOGLOBIN 10.2 g/dL (12.0-18.0); BG TOTAL RESPIRATORY RATE 15 b/min; BG VENT MODE VENT - SIMV
[2021-05-21] MEDS ORDERED: LEVETIRACETAM 500 MG in SODIUM CHLORIDE 0.9% 100 ML IV SCH (09:45)
[2021-05-21] MEDS ORDERED: FLUMAZENIL 0.1 MG/ML 5ML VIAL IV ONE (10:00)
[2021-05-21] MEDS: LACTULOSE 300 ML in WATER FOR IRRIGATION,STERILE 700 ML IR NR ×3 (10:47→13:19)
[2021-05-21] MEDS: LEVOTHYROXINE SODIUM 75MCG TABLET PO SCH (10:47)
[2021-05-21] MEDS: SODIUM CHLORIDE 0.45% 1,000 ML IV SCH (10:49)
[2021-05-21 11:52] LABS: BG BASE EXCESS -2.4 mmol/L (-2.0-2.0); BG CARBOXYHEMOGLOBIN 0.5 % (0.5-1.5); BG DEOXYHEMOGLOBIN 2.5 % (0.0-5.0); BG HCO3 ACT 24.2 mmol/L (22.0-26.0); BG METHEMOGLOBIN 0.1 % (0.0-1.5); BG OXYGEN SATURATION 97.5 % (92.0-98.5); BG OXYHEMOGLOBIN 96.9 % (94.0-97.0); BG PCO2 50.3 mmHg (35.0-45.0); BG PO2 102.1 mmHg (75.0-100.0); BG SAMPLE SITE RIGHT RADIAL; BG TOTAL HEMOGLOBIN 10.2 g/dL (12.0-18.0); BG VENT MODE VENT - CPAP
[2021-05-21] MEDS ORDERED: RACEPINEPHRINE 2.25% 0.5ML NEB VIAL HHN PRN (12:30)
[2021-05-21] MEDS ORDERED: METHYLPREDNISOLONE SOD SUCC 125 MG/2 ML VIAL IV NR (13:15)
[2021-05-21] MEDS: LEVETIRACETAM 500MG PREMIX 100 ML IV SCH ×2 (13:19→20:26)
[2021-05-21 15:50] LABS: BG BASE EXCESS -4.4 mmol/L (-2.0-2.0); BG CARBOXYHEMOGLOBIN 0.6 % (0.5-1.5); BG FRACTION INSPIRED OXYGEN 50; BG HCO3 ACT 22.3 mmol/L (22.0-26.0); BG METHEMOGLOBIN 0.1 % (0.0-1.5); BG OXYHEMOGLOBIN 97.3 % (94.0-97.0); BG PCO2 48.5 mmHg (35.0-45.0); BG PO2 115.2 mmHg (75.0-100.0); BG SAMPLE SITE RIGHT RADIAL; BG TOTAL RESPIRATORY RATE 16 b/min; BG VENT MODE VENT - AC
[2021-05-21] MEDS: METHYLPREDNISOLONE SOD SUCC 125 MG/2 ML VIAL IV SCH (17:33)
[2021-05-21] MEDS: RIFAXIMIN 550 MG TABLET PO SCH (20:26)
[2021-05-21] MEDS: MICAFUNGIN 150 MG in SODIUM CHLORIDE 0.9% 100 ML IV SCH (20:26)
[2021-05-22] VITALS (88 sets, daily range): BP systolic 107–147; BP diastolic 50–79
[2021-05-22] MEDS: IPRATROPIUM/ALBUTEROL 0.5-3(2.5)MG/3ML NEB HHN SCH ×6 (00:15→20:19)
[2021-05-22] MEDS: METHYLPREDNISOLONE SOD SUCC 125 MG/2 ML VIAL IV SCH ×4 (00:37→17:10)
[2021-05-22] MEDS: DIPHENHYDRAMINE 50MG/ML VIAL IV SCH ×4 (00:38→17:10)
[2021-05-22] MEDS: MEROPENEM 1,000 MG in SODIUM CHLORIDE 0.9% 100 ML IV SCH ×3 (03:18→20:54)
[2021-05-22] MEDS: LACTULOSE 20G/30ML UDC PO SCH ×3 (05:40→21:12)
[2021-05-22 06:39] LABS: HEMATOCRIT. 29.8 % (36.0-48.0); HEMOGLOBIN. 9.2 g/dL (12.0-16.0); MEAN CORPUSCULAR HEMOGLOBIN 31.4 pg (28.0-32.0); MEAN CORPUSCULAR VOLUME 101.7 fL (81.0-99.0); MEAN PLATELET VOLUME 8.1 fl (7.4-10.4); PLATELET 112 x1000/uL (130-400); RED BLOOD CELL COUNT 2.93 mill/uL (4.2-5.4); RED CELL DISTRIBUTION WIDTH 20.1 % (11.6-14.6)
[2021-05-22] MEDS: SODIUM CHLORIDE 0.45% 1,000 ML IV SCH (06:39)
[2021-05-22 06:49] LABS: CHLORIDE 121 mEq/L (98-107)
[2021-05-22] MEDS: ENOXAPARIN 30MG/0.3ML SYR SUBCUT SCH ×2 (08:20→20:54)
[2021-05-22] MEDS: NYSTATIN/TRIAMCIN CREAM 15GM TOP SCH ×3 (08:21→17:11)
[2021-05-22] MEDS: RIFAXIMIN 550 MG TABLET PO SCH ×2 (08:21→20:54)
[2021-05-22] MEDS: LEVOTHYROXINE SODIUM 75MCG TABLET PO SCH (08:21)
[2021-05-22] MEDS: LEVETIRACETAM 500MG PREMIX 100 ML IV SCH ×2 (08:21→20:54)
[2021-05-22] MEDS: PANTOPRAZOLE SODIUM 40 MG/VIAL IV SCH (08:21)
[2021-05-22 10:41] LABS: BG BASE EXCESS -2.4 mmol/L (-2.0-2.0); BG CARBOXYHEMOGLOBIN 0.4 % (0.5-1.5); BG DEOXYHEMOGLOBIN 1.8 % (0.0-5.0); BG FRACTION INSPIRED OXYGEN 40; BG HCO3 ACT 24.1 mmol/L (22.0-26.0); BG METHEMOGLOBIN 0.2 % (0.0-1.5); BG OXYGEN SATURATION 98.2 % (92.0-98.5); BG OXYHEMOGLOBIN 97.6 % (94.0-97.0); BG PCO2 50.3 mmHg (35.0-45.0); BG PH 7.299 (7.350-7.450); BG PO2 117.4 mmHg (75.0-100.0); BG SAMPLE SITE RIGHT RADIAL; BG TOTAL HEMOGLOBIN 9.1 g/dL (12.0-18.0); BG VENT MODE VENT - AC
[2021-05-22 12:24] LABS: PLATELET ESTIMATE SLIGHTLY DECREASED
[2021-05-22] MEDS: FENTANYL CITRATE 2,500 MCG in SODIUM CHLORIDE 0.9% 200 ML IV PRN (12:31)
[2021-05-22] MEDS ORDERED: SODIUM POLYSTYRENE SULFONATE 15 G/60 ML BOT PO NR (13:00)
[2021-05-22] MEDS: PROPOFOL 10MG/ML 100ML 100 ML IV PRN ×3 (13:31→21:30)
[2021-05-22] MEDS: MICAFUNGIN 150 MG in SODIUM CHLORIDE 0.9% 100 ML IV SCH (21:13)
[2021-05-23] VITALS (97 sets, daily range): BP systolic 89–152; BP diastolic 40–76
[2021-05-23] MEDS: IPRATROPIUM/ALBUTEROL 0.5-3(2.5)MG/3ML NEB HHN SCH ×6 (00:18→20:07)
[2021-05-23] MEDS: METHYLPREDNISOLONE SOD SUCC 125 MG/2 ML VIAL IV SCH ×5 (00:19→23:38)
[2021-05-23] MEDS: DIPHENHYDRAMINE 50MG/ML VIAL IV SCH ×5 (00:20→23:38)
[2021-05-23] MEDS: PROPOFOL 10MG/ML 100ML 100 ML IV PRN ×6 (01:24→23:30)
[2021-05-23] MEDS: MEROPENEM 1,000 MG in SODIUM CHLORIDE 0.9% 100 ML IV SCH ×3 (04:27→23:04)
[2021-05-23] MEDS: LACTULOSE 20G/30ML UDC PO SCH ×3 (05:35→23:03)
[2021-05-23 06:18] LABS: BASOPHILS % 0.3 % (0.0-2.0); EOSINOPHILS % 0.1 % (0.0-5.0); HEMATOCRIT. 27.4 % (36.0-48.0); HEMOGLOBIN. 8.6 g/dL (12.0-16.0); LYMPHOCYTES % 7.6 % (20.0-50.0); MEAN CORPUSCULAR HEMOGLOBIN 31.9 pg (28.0-32.0); MEAN CORPUSCULAR VOLUME 101.3 fL (81.0-99.0); MEAN PLATELET VOLUME 8.4 fl (7.4-10.4); MONOCYTES % 4.4 % (2.0-8.0); NEUTROPHILS % 87.6 % (40.0-76.0); PLATELET 121 x1000/uL (130-400); RED BLOOD CELL COUNT 2.71 mill/uL (4.2-5.4); RED CELL DISTRIBUTION WIDTH 20.2 % (11.6-14.6)
[2021-05-23 07:09] LABS: CHLORIDE 119 mEq/L (98-107)
[2021-05-23] MEDS: RIFAXIMIN 550 MG TABLET PO SCH ×2 (08:25→23:03)
[2021-05-23] MEDS: LEVETIRACETAM 500MG PREMIX 100 ML IV SCH ×2 (08:25→23:03)
[2021-05-23] MEDS: LEVOTHYROXINE SODIUM 75MCG TABLET PO SCH (08:25)
[2021-05-23] MEDS: ENOXAPARIN 30MG/0.3ML SYR SUBCUT SCH ×2 (08:26→23:04)
[2021-05-23] MEDS: PANTOPRAZOLE SODIUM 40 MG/VIAL IV SCH (08:26)
[2021-05-23] MEDS: NYSTATIN/TRIAMCIN CREAM 15GM TOP SCH ×3 (08:27→16:45)
[2021-05-23] MEDS: FENTANYL CITRATE/PF 2,500 MCG in SODIUM CHLORIDE 0.9% 200 ML IV PRN ×2 (09:00→23:31)
[2021-05-23] MEDS: FUROSEMIDE 40MG/4ML VIAL IVP SCH (09:04)
[2021-05-23 10:13] LABS: BG BASE EXCESS 0.6 mmol/L (-2.0-2.0); BG CARBOXYHEMOGLOBIN 0.4 % (0.5-1.5); BG DEOXYHEMOGLOBIN 4.1 % (0.0-5.0); BG FRACTION INSPIRED OXYGEN 40; BG HCO3 ACT 26.4 mmol/L (22.0-26.0); BG OXYGEN SATURATION 95.9 % (92.0-98.5); BG OXYHEMOGLOBIN 95.5 % (94.0-97.0); BG PCO2 47.5 mmHg (35.0-45.0); BG PH 7.362 (7.350-7.450); BG PO2 84.9 mmHg (75.0-100.0); BG SAMPLE SITE RIGHT RADIAL; BG TOTAL HEMOGLOBIN 10.3 g/dL (12.0-18.0); BG VENT MODE VENT - AC
[2021-05-23] MEDS ORDERED: SODIUM POLYSTYRENE SULFONATE 15 G/60 ML BOT PO SCH (12:00)
[2021-05-23] MEDS: MICAFUNGIN 150 MG in SODIUM CHLORIDE 0.9% 100 ML IV SCH (23:04)
[2021-05-24] VITALS (96 sets, daily range): BP systolic 101–153; BP diastolic 39–97
[2021-05-24] MEDS: IPRATROPIUM/ALBUTEROL 0.5-3(2.5)MG/3ML NEB HHN SCH ×6 (00:39→20:17)
[2021-05-24] MEDS: FENTANYL CITRATE/PF 2,500 MCG in SODIUM CHLORIDE 0.9% 200 ML IV PRN ×2 (04:02→18:05)
[2021-05-24] MEDS: MEROPENEM 1,000 MG in SODIUM CHLORIDE 0.9% 100 ML IV SCH ×3 (04:39→21:38)
[2021-05-24 05:32] LABS: HEMATOCRIT. 26.4 % (36.0-48.0); HEMOGLOBIN. 8.6 g/dL (12.0-16.0); MEAN CORPUSCULAR HEMOGLOBIN 32.1 pg (28.0-32.0); MEAN CORPUSCULAR VOLUME 98.3 fL (81.0-99.0); MEAN PLATELET VOLUME 8.4 fl (7.4-10.4); PLATELET 113 x1000/uL (130-400); RED BLOOD CELL COUNT 2.69 mill/uL (4.2-5.4); RED CELL DISTRIBUTION WIDTH 19.7 % (11.6-14.6)
[2021-05-24 05:35] LABS: CHLORIDE 121 mEq/L (98-107)
[2021-05-24] MEDS: PROPOFOL 10MG/ML 100ML 100 ML IV PRN ×2 (05:38→10:48)
[2021-05-24 05:42] LABS: PHOSPHORUS 3.6 mg/dL (2.5-4.9)
[2021-05-24] MEDS: LACTULOSE 20G/30ML UDC PO SCH ×3 (05:57→21:38)
[2021-05-24] MEDS: METHYLPREDNISOLONE SOD SUCC 125 MG/2 ML VIAL IV SCH ×3 (05:57→17:12)
[2021-05-24] MEDS: DIPHENHYDRAMINE 50MG/ML VIAL IV SCH ×3 (05:58→17:12)
[2021-05-24] MEDS: PANTOPRAZOLE SODIUM 40 MG/VIAL IV SCH (08:25)
[2021-05-24] MEDS: ENOXAPARIN 30MG/0.3ML SYR SUBCUT SCH ×2 (08:26→21:38)
[2021-05-24] MEDS: RIFAXIMIN 550 MG TABLET PO SCH ×2 (08:26→21:38)
[2021-05-24] MEDS: FUROSEMIDE 40MG/4ML VIAL IVP SCH (08:26)
[2021-05-24] MEDS: LEVOTHYROXINE SODIUM 75MCG TABLET PO SCH (08:26)
[2021-05-24] MEDS: LEVETIRACETAM 500MG PREMIX 100 ML IV SCH ×2 (08:26→21:38)
[2021-05-24] MEDS: NYSTATIN/TRIAMCIN CREAM 15GM TOP SCH ×3 (08:27→17:11)
[2021-05-24 09:29] LABS: BG BASE EXCESS -1.4 mmol/L (-2.0-2.0); BG CARBOXYHEMOGLOBIN 0.5 % (0.5-1.5); BG DEOXYHEMOGLOBIN 7.7 % (0.0-5.0); BG FRACTION INSPIRED OXYGEN 40; BG HCO3 ACT 23.6 mmol/L (22.0-26.0); BG OXYGEN SATURATION 92.3 % (92.0-98.5); BG OXYHEMOGLOBIN 91.8 % (94.0-97.0); BG PCO2 40.5 mmHg (35.0-45.0); BG PH 7.383 (7.350-7.450); BG PO2 69.2 mmHg (75.0-100.0); BG SAMPLE SITE RIGHT RADIAL; BG TOTAL HEMOGLOBIN 10.9 g/dL (12.0-18.0); BG VENT MODE VENT - AC
[2021-05-24 10:19] LABS: NUCLEATED RED BLOOD CELLS 1 /100 WBC
[2021-05-24 10:20] LABS: PLATELET ESTIMATE DECREASED
[2021-05-24] MEDS ORDERED: NALOXONE HCL 0.4MG/ML VIAL IV PRN (12:15)
[2021-05-24] MEDS: LORAZEPAM 2MG/ML CPJ IV PRN ×3 (13:15→21:39)
[2021-05-24] MEDS: MORPHINE SULFATE 2 MG/ML CPJ (NOT FOR IM USE) IV PRN (13:37)
[2021-05-24 21:36] LABS: HEPATITIS B SURFACE ANTIGEN NEGATIVE
[2021-05-24] MEDS: MICAFUNGIN 150 MG in SODIUM CHLORIDE 0.9% 100 ML IV SCH (21:38)
[2021-05-25] VITALS (62 sets, daily range): BP systolic 110–175; BP diastolic 53–95
[2021-05-25] MEDS: IPRATROPIUM/ALBUTEROL 0.5-3(2.5)MG/3ML NEB HHN SCH ×6 (00:46→20:42)
[2021-05-25] MEDS: DIPHENHYDRAMINE 50MG/ML VIAL IV SCH ×5 (00:48→23:32)
[2021-05-25] MEDS: METHYLPREDNISOLONE SOD SUCC 125 MG/2 ML VIAL IV SCH ×5 (00:48→23:31)
[2021-05-25] MEDS: MEROPENEM 1,000 MG in SODIUM CHLORIDE 0.9% 100 ML IV SCH ×3 (04:47→20:25)
[2021-05-25] MEDS: LACTULOSE 20G/30ML UDC PO SCH ×3 (05:52→21:14)
[2021-05-25 07:20] LABS: INR 1.5; PROTHROMBIN TIME 15.4 sec (9.6-11.0)
[2021-05-25 07:44] LABS: CHLORIDE 122 mEq/L (98-107)
[2021-05-25 07:46] LABS: BG BASE EXCESS 0.5 mmol/L (-2.0-2.0); BG CARBOXYHEMOGLOBIN 0.3 % (0.5-1.5); BG DEOXYHEMOGLOBIN 6.6 % (0.0-5.0); BG HCO3 ACT 25.8 mmol/L (22.0-26.0); BG METHEMOGLOBIN 0.3 % (0.0-1.5); BG OXYGEN SATURATION 93.4 % (92.0-98.5); BG OXYHEMOGLOBIN 92.8 % (94.0-97.0); BG PCO2 44.3 mmHg (35.0-45.0); BG PH 7.383 (7.350-7.450); BG PO2 74.5 mmHg (75.0-100.0); BG SAMPLE SITE RIGHT RADIAL; BG TOTAL HEMOGLOBIN 10.4 g/dL (12.0-18.0); BG VENT MODE VENT - AC
[2021-05-25] MEDS: LEVETIRACETAM 500MG PREMIX 100 ML IV SCH ×2 (08:30→20:26)
[2021-05-25] MEDS: PANTOPRAZOLE SODIUM 40 MG/VIAL IV SCH (08:39)
[2021-05-25] MEDS: RIFAXIMIN 550 MG TABLET PO SCH ×2 (08:39→20:25)
[2021-05-25] MEDS: LEVOTHYROXINE SODIUM 75MCG TABLET PO SCH (08:39)
[2021-05-25] MEDS: FUROSEMIDE 40MG/4ML VIAL IVP SCH ×2 (08:39→17:21)
[2021-05-25] MEDS: NYSTATIN/TRIAMCIN CREAM 15GM TOP SCH ×3 (08:40→17:22)
[2021-05-25] MEDS: ENOXAPARIN 30MG/0.3ML SYR SUBCUT SCH ×2 (08:40→20:26)
[2021-05-25] MEDS: LORAZEPAM 2MG/ML CPJ IV PRN ×3 (09:31→21:38)
[2021-05-25 10:45] LABS: HEMATOCRIT. 29.5 % (36.0-48.0); HEMOGLOBIN. 9.7 g/dL (12.0-16.0); MEAN CORPUSCULAR HEMOGLOBIN 32.1 pg (28.0-32.0); RED BLOOD CELL COUNT 3.01 mill/uL (4.2-5.4)
[2021-05-25 11:52] LABS: MEAN PLATELET VOLUME 8.5 fl (7.4-10.4); PLATELET 125 x1000/uL (130-400); PLATELET ESTIMATE SLIGHTLY DECREASED
[2021-05-25] MEDS: FENTANYL CITRATE/PF 2,500 MCG in SODIUM CHLORIDE 0.9% 200 ML IV PRN (16:35)
[2021-05-25] MEDS: MICAFUNGIN 150 MG in SODIUM CHLORIDE 0.9% 100 ML IV SCH (20:25)
[2021-05-26] VITALS (53 sets, daily range): BP systolic 109–161; BP diastolic 48–106
[2021-05-26] MEDS: IPRATROPIUM/ALBUTEROL 0.5-3(2.5)MG/3ML NEB HHN SCH ×6 (00:37→20:31)
[2021-05-26] MEDS: LORAZEPAM 2MG/ML CPJ IV PRN ×3 (04:23→20:33)
[2021-05-26] MEDS: MEROPENEM 1,000 MG in SODIUM CHLORIDE 0.9% 100 ML IV SCH ×3 (04:24→20:29)
[2021-05-26] MEDS: LACTULOSE 20G/30ML UDC PO SCH ×3 (05:03→22:12)
[2021-05-26] MEDS: DIPHENHYDRAMINE 50MG/ML VIAL IV SCH ×3 (05:03→17:53)
[2021-05-26] MEDS: METHYLPREDNISOLONE SOD SUCC 125 MG/2 ML VIAL IV SCH ×3 (05:03→17:52)
[2021-05-26 06:13] LABS: HEMATOCRIT. 33.2 % (36.0-48.0); HEMOGLOBIN. 10.5 g/dL (12.0-16.0); MEAN CORPUSCULAR HEMOGLOBIN 31.3 pg (28.0-32.0); MEAN CORPUSCULAR VOLUME 99.1 fL (81.0-99.0); RED BLOOD CELL COUNT 3.35 mill/uL (4.2-5.4); RED CELL DISTRIBUTION WIDTH 19.6 % (11.6-14.6)
[2021-05-26 06:21] LABS: CHLORIDE 119 mEq/L (98-107)
[2021-05-26] MEDS: RIFAXIMIN 550 MG TABLET PO SCH ×2 (08:12→20:53)
[2021-05-26] MEDS: PANTOPRAZOLE SODIUM 40 MG/VIAL IV SCH (08:12)
[2021-05-26] MEDS: FUROSEMIDE 40MG/4ML VIAL IVP SCH ×2 (08:12→16:47)
[2021-05-26] MEDS: LEVOTHYROXINE SODIUM 75MCG TABLET PO SCH (08:13)
[2021-05-26] MEDS: ENOXAPARIN 30MG/0.3ML SYR SUBCUT SCH (08:13)
[2021-05-26] MEDS: NYSTATIN/TRIAMCIN CREAM 15GM TOP SCH ×3 (08:15→16:47)
[2021-05-26] MEDS: LEVETIRACETAM 500MG PREMIX 100 ML IV SCH ×2 (08:15→20:52)
[2021-05-26] MEDS ORDERED: POTASSIUM CHLORIDE 20MEQ/PACKET PO SCH (09:00)
[2021-05-26 12:13] LABS: PLATELET 127 x1000/uL (130-400)
[2021-05-26] MEDS: DIPHENHYDRAMINE 50MG/ML VIAL IV PRN (20:33)
[2021-05-26] MEDS: CLONIDINE 0.1MG TABLET PO PRN (20:34)
[2021-05-26] MEDS: MICAFUNGIN 150 MG in SODIUM CHLORIDE 0.9% 100 ML IV SCH (20:52)
[2021-05-27] VITALS (51 sets, daily range): BP systolic 105–164; BP diastolic 44–106
[2021-05-27] MEDS: IPRATROPIUM/ALBUTEROL 0.5-3(2.5)MG/3ML NEB HHN SCH ×6 (00:41→20:10)
[2021-05-27] MEDS: METHYLPREDNISOLONE SOD SUCC 125 MG/2 ML VIAL IV SCH ×4 (03:12→17:22)
[2021-05-27] MEDS: LORAZEPAM 2MG/ML CPJ IV PRN ×2 (03:16→08:51)
[2021-05-27 06:02] LABS: HEMATOCRIT. 30.1 % (36.0-48.0); HEMOGLOBIN. 9.8 g/dL (12.0-16.0); MEAN CORPUSCULAR HEMOGLOBIN 31.5 pg (28.0-32.0); MEAN CORPUSCULAR VOLUME 96.2 fL (81.0-99.0); RED BLOOD CELL COUNT 3.12 mill/uL (4.2-5.4); RED CELL DISTRIBUTION WIDTH 19.1 % (11.6-14.6)
[2021-05-27 06:07] LABS: CHLORIDE 120 mEq/L (98-107)
[2021-05-27] MEDS: DIPHENHYDRAMINE 50MG/ML VIAL IV SCH ×4 (06:15→17:22)
[2021-05-27] MEDS: LACTULOSE 20G/30ML UDC PO SCH ×3 (06:16→21:41)
[2021-05-27 06:18] LABS: PHOSPHORUS 3.2 mg/dL (2.5-4.9)
[2021-05-27] MEDS ORDERED: DEXTROSE 50% WATER 50ML SYRINGE IV PRN (07:00)
[2021-05-27] MEDS: LEVOTHYROXINE SODIUM 75MCG TABLET PO SCH (07:31)
[2021-05-27] MEDS: INSULIN LISPRO 100 UNITS/ML SUBCUT SCH ×3 (07:44→17:23)
[2021-05-27] MEDS ORDERED: INSULIN LISPRO 100 UNITS/ML SUBCUT SCH (08:20)
[2021-05-27 08:45] LABS: BG BASE EXCESS 3.3 mmol/L (-2.0-2.0); BG CARBOXYHEMOGLOBIN 0.4 % (0.5-1.5); BG DEOXYHEMOGLOBIN 7.7 % (0.0-5.0); BG FRACTION INSPIRED OXYGEN 35; BG HCO3 ACT 27.2 mmol/L (22.0-26.0); BG METHEMOGLOBIN 0.1 % (0.0-1.5); BG OXYGEN SATURATION 92.3 % (92.0-98.5); BG OXYHEMOGLOBIN 91.8 % (94.0-97.0); BG PH 7.462 (7.350-7.450); BG PO2 67.5 mmHg (75.0-100.0); BG SAMPLE SITE RIGHT RADIAL; BG TOTAL HEMOGLOBIN 9.7 g/dL (12.0-18.0); BG VENT MODE VENT - AC
[2021-05-27] MEDS: PANTOPRAZOLE SODIUM 40 MG/VIAL IV SCH (08:50)
[2021-05-27] MEDS: LEVETIRACETAM 500MG PREMIX 100 ML IV SCH ×2 (08:50→21:26)
[2021-05-27] MEDS: NYSTATIN/TRIAMCIN CREAM 15GM TOP SCH ×3 (08:51→17:21)
[2021-05-27] MEDS: POTASSIUM CHLORIDE 20MEQ/PACKET PO SCH (09:35)
[2021-05-27] MEDS: FUROSEMIDE 40MG/4ML VIAL IVP SCH ×2 (09:35→17:23)
[2021-05-27 09:53] LABS: MEAN PLATELET VOLUME 8.6 fl (7.4-10.4); PLATELET ESTIMATE SLIGHTLY DECREASED
[2021-05-27 09:54] LABS: PLATELET 127 x1000/uL (130-400)
[2021-05-27] MEDS: BLOOD SUGAR DIAGNOSTIC STRIP TEST SCH ×2 (11:37→17:16)
[2021-05-27] MEDS: PROPOFOL 10MG/ML 100ML 100 ML IV PRN ×2 (12:34→17:23)
[2021-05-27 13:02] LABS: INR 1.5; PROTHROMBIN TIME 15.3 sec (9.6-11.0)
[2021-05-27] MEDS: ENOXAPARIN 30MG/0.3ML SYR SUBCUT SCH (21:27)
[2021-05-27] MEDS: CLONIDINE 0.1MG TABLET PO PRN (23:45)
[2021-05-28] VITALS (48 sets, daily range): BP systolic 118–155; BP diastolic 53–107
[2021-05-28] MEDS: IPRATROPIUM/ALBUTEROL 0.5-3(2.5)MG/3ML NEB HHN SCH ×6 (00:04→20:12)
[2021-05-28] MEDS: BLOOD SUGAR DIAGNOSTIC STRIP TEST SCH ×4 (00:53→18:07)
[2021-05-28] MEDS: INSULIN LISPRO 100 UNITS/ML SUBCUT SCH ×4 (00:54→18:00)
[2021-05-28] MEDS: DIPHENHYDRAMINE 50MG/ML VIAL IV SCH ×4 (00:55→17:05)
[2021-05-28] MEDS: METHYLPREDNISOLONE SOD SUCC 125 MG/2 ML VIAL IV SCH ×5 (00:55→23:56)
[2021-05-28] MEDS: LORAZEPAM 2MG/ML CPJ IV PRN (00:59)
[2021-05-28] MEDS ORDERED: PROPOFOL 10MG/ML 100ML 100 ML IV PRN (05:30)
[2021-05-28 05:32] LABS: CHLORIDE 121 mEq/L (98-107)
[2021-05-28 05:37] LABS: HEMATOCRIT. 32.6 % (36.0-48.0); HEMOGLOBIN. 10.3 g/dL (12.0-16.0); MEAN CORPUSCULAR HEMOGLOBIN 30.8 pg (28.0-32.0); MEAN PLATELET VOLUME 9.1 fl (7.4-10.4); PLATELET 130 x1000/uL (130-400); RED BLOOD CELL COUNT 3.36 mill/uL (4.2-5.4); RED CELL DISTRIBUTION WIDTH 19.3 % (11.6-14.6)
[2021-05-28] MEDS: LACTULOSE 20G/30ML UDC PO SCH ×3 (06:14→23:42)
[2021-05-28] MEDS: DEXTROSE 5% WATER 1,000 ML IV SCH (07:37)
[2021-05-28] MEDS ORDERED: POTASSIUM CHLORIDE INJ 40 MEQ in DEXT 5% WATER 250 ML IV NR (09:30)
[2021-05-28] MEDS: PANTOPRAZOLE SODIUM 40 MG/VIAL IV SCH (09:47)
[2021-05-28] MEDS: POTASSIUM CHLORIDE 20MEQ/PACKET PO SCH (09:48)
[2021-05-28] MEDS: LEVOTHYROXINE SODIUM 75MCG TABLET PO SCH (09:48)
[2021-05-28] MEDS: ENOXAPARIN 30MG/0.3ML SYR SUBCUT SCH ×2 (09:48→23:41)
[2021-05-28] MEDS: FUROSEMIDE 40MG/4ML VIAL IVP SCH (09:48)
[2021-05-28] MEDS: NYSTATIN/TRIAMCIN CREAM 15GM TOP SCH ×3 (09:59→17:05)
[2021-05-28] MEDS: LEVETIRACETAM 500MG PREMIX 100 ML IV SCH ×2 (10:12→23:41)
[2021-05-28 10:16] LABS: NUCLEATED RED BLOOD CELLS 1 /100 WBC; PLATELET ESTIMATE NORMAL
[2021-05-28 12:43] LABS: BG BASE EXCESS 4.9 mmol/L (-2.0-2.0); BG CARBOXYHEMOGLOBIN 0.7 % (0.5-1.5); BG DEOXYHEMOGLOBIN 5.6 % (0.0-5.0); BG FRACTION INSPIRED OXYGEN 35; BG HCO3 ACT 29.2 mmol/L (22.0-26.0); BG METHEMOGLOBIN 0.1 % (0.0-1.5); BG OXYGEN SATURATION 94.4 % (92.0-98.5); BG OXYHEMOGLOBIN 93.6 % (94.0-97.0); BG PO2 75.5 mmHg (75.0-100.0); BG SAMPLE SITE RIGHT BRACHIAL; BG VENT MODE VENT - CPAP
[2021-05-28] MEDS ORDERED: RACEPINEPHRINE 2.25% 0.5ML NEB VIAL HHN NR (13:15)
[2021-05-28] MEDS: MORPHINE SULFATE 2 MG/ML CPJ (NOT FOR IM USE) IV PRN (14:29)
[2021-05-28] MEDS: RACEPINEPHRINE 2.25% 0.5ML NEB VIAL HHN PRN (18:12)
[2021-05-28 18:55] LABS: BG BASE EXCESS 5.2 mmol/L (-2.0-2.0); BG CARBOXYHEMOGLOBIN 0.4 % (0.5-1.5); BG DEOXYHEMOGLOBIN 4.2 % (0.0-5.0); BG FRACTION INSPIRED OXYGEN 100; BG HCO3 ACT 28.9 mmol/L (22.0-26.0); BG METHEMOGLOBIN 0.3 % (0.0-1.5); BG OXYGEN SATURATION 95.8 % (92.0-98.5); BG OXYHEMOGLOBIN 95.1 % (94.0-97.0); BG PH 7.488 (7.350-7.450); BG PO2 82.1 mmHg (75.0-100.0); BG SAMPLE SITE RIGHT RADIAL; BG VENT MODE MASK - BIPAP
[2021-05-29] VITALS (47 sets, daily range): BP systolic 120–159; BP diastolic 57–109
[2021-05-29] MEDS: BLOOD SUGAR DIAGNOSTIC STRIP TEST SCH ×4 (00:05→17:46)
[2021-05-29] MEDS: DIPHENHYDRAMINE 50MG/ML VIAL IV SCH ×4 (00:05→17:53)
[2021-05-29] MEDS: IPRATROPIUM/ALBUTEROL 0.5-3(2.5)MG/3ML NEB HHN SCH ×6 (00:08→19:56)
[2021-05-29] MEDS: INSULIN LISPRO 100 UNITS/ML SUBCUT SCH ×4 (00:11→17:53)
[2021-05-29] MEDS: DEXTROSE 5% WATER 1,000 ML IV SCH ×2 (03:41→22:10)
[2021-05-29 05:52] LABS: CHLORIDE 120 mEq/L (98-107)
[2021-05-29 05:54] LABS: HEMATOCRIT. 32.8 % (36.0-48.0); HEMOGLOBIN. 10.7 g/dL (12.0-16.0); MEAN CORPUSCULAR HEMOGLOBIN 31.7 pg (28.0-32.0); MEAN CORPUSCULAR VOLUME 97.4 fL (81.0-99.0); RED BLOOD CELL COUNT 3.37 mill/uL (4.2-5.4); RED CELL DISTRIBUTION WIDTH 18.8 % (11.6-14.6)
[2021-05-29 05:57] LABS: PHOSPHORUS 3.3 mg/dL (2.5-4.9)
[2021-05-29] MEDS: LACTULOSE 20G/30ML UDC PO SCH ×3 (06:23→21:00)
[2021-05-29] MEDS: METHYLPREDNISOLONE SOD SUCC 125 MG/2 ML VIAL IV SCH ×3 (06:23→17:52)
[2021-05-29 08:23] LABS: MEAN PLATELET VOLUME 9.9 fl (7.4-10.4); PLATELET 125 x1000/uL (130-400); PLATELET ESTIMATE SLIGHTLY DECREASED
[2021-05-29] MEDS: FUROSEMIDE 40MG/4ML VIAL IVP SCH (08:45)
[2021-05-29] MEDS: PANTOPRAZOLE SODIUM 40 MG/VIAL IV SCH (08:45)
[2021-05-29] MEDS: ENOXAPARIN 30MG/0.3ML SYR SUBCUT SCH ×2 (08:46→21:00)
[2021-05-29] MEDS: LEVOTHYROXINE SODIUM 75MCG TABLET PO SCH (08:46)
[2021-05-29] MEDS: POTASSIUM CHLORIDE 20MEQ/PACKET PO SCH (08:46)
[2021-05-29] MEDS: NYSTATIN/TRIAMCIN CREAM 15GM TOP SCH ×3 (08:47→17:53)
[2021-05-29] MEDS ORDERED: LIDOCAINE HCL 1% 20ML VIAL (Pyxis) INJ ONE (09:01)
[2021-05-29] MEDS: MORPHINE SULFATE 2 MG/ML CPJ (NOT FOR IM USE) IV PRN (11:10)
[2021-05-29] MEDS: LEVETIRACETAM 500MG PREMIX 100 ML IV SCH ×2 (12:21→21:00)
[2021-05-30] VITALS (49 sets, daily range): BP systolic 110–190; BP diastolic 51–127
[2021-05-30] MEDS: IPRATROPIUM/ALBUTEROL 0.5-3(2.5)MG/3ML NEB HHN SCH ×6 (00:23→20:52)
[2021-05-30] MEDS: METHYLPREDNISOLONE SOD SUCC 125 MG/2 ML VIAL IV SCH ×4 (00:43→17:30)
[2021-05-30] MEDS: BLOOD SUGAR DIAGNOSTIC STRIP TEST SCH ×4 (00:43→17:05)
[2021-05-30] MEDS: DIPHENHYDRAMINE 50MG/ML VIAL IV SCH ×4 (00:43→17:30)
[2021-05-30] MEDS: INSULIN LISPRO 100 UNITS/ML SUBCUT SCH ×4 (01:08→17:30)
[2021-05-30] MEDS: MORPHINE SULFATE 2 MG/ML CPJ (NOT FOR IM USE) IV PRN ×2 (04:20→10:18)
[2021-05-30] MEDS: LACTULOSE 20G/30ML UDC PO SCH ×3 (05:09→21:23)
[2021-05-30 05:48] LABS: CHLORIDE 120 mEq/L (98-107); HEMATOCRIT. 33.7 % (36.0-48.0); HEMOGLOBIN. 10.8 g/dL (12.0-16.0); MEAN CORPUSCULAR HEMOGLOBIN 31.3 pg (28.0-32.0); MEAN CORPUSCULAR VOLUME 97.7 fL (81.0-99.0); MEAN PLATELET VOLUME 9.3 fl (7.4-10.4); PLATELET 122 x1000/uL (130-400); RED BLOOD CELL COUNT 3.45 mill/uL (4.2-5.4); RED CELL DISTRIBUTION WIDTH 19.5 % (11.6-14.6)
[2021-05-30] MEDS: FUROSEMIDE 40MG/4ML VIAL IVP SCH (09:46)
[2021-05-30] MEDS: PANTOPRAZOLE SODIUM 40 MG/VIAL IV SCH (09:46)
[2021-05-30] MEDS: LEVOTHYROXINE SODIUM 75MCG TABLET PO SCH (09:46)
[2021-05-30] MEDS: LEVETIRACETAM 500MG PREMIX 100 ML IV SCH ×2 (09:46→21:23)
[2021-05-30] MEDS: POTASSIUM CHLORIDE 20MEQ/PACKET PO SCH (09:47)
[2021-05-30] MEDS: ENOXAPARIN 30MG/0.3ML SYR SUBCUT SCH ×2 (09:47→21:23)
[2021-05-30 09:48] LABS: PLATELET ESTIMATE NORMAL
[2021-05-30] MEDS: NYSTATIN/TRIAMCIN CREAM 15GM TOP SCH ×3 (10:17→17:29)
[2021-05-30] MEDS: DEXTROSE 5% WATER 1,000 ML IV SCH (19:12)
[2021-05-30] MEDS: LORAZEPAM 2MG/ML CPJ IV PRN (22:18)
[2021-05-31] VITALS (46 sets, daily range): BP systolic 98–170; BP diastolic 52–111
[2021-05-31] MEDS: IPRATROPIUM/ALBUTEROL 0.5-3(2.5)MG/3ML NEB HHN SCH ×6 (00:25→20:22)
[2021-05-31] MEDS: DIPHENHYDRAMINE 50MG/ML VIAL IV SCH ×4 (00:26→18:04)
[2021-05-31] MEDS: METHYLPREDNISOLONE SOD SUCC 125 MG/2 ML VIAL IV SCH ×3 (00:26→12:48)
[2021-05-31] MEDS: BLOOD SUGAR DIAGNOSTIC STRIP TEST SCH ×4 (00:27→18:03)
[2021-05-31] MEDS: INSULIN LISPRO 100 UNITS/ML SUBCUT SCH ×4 (00:28→18:07)
[2021-05-31 05:21] LABS: HEMATOCRIT. 35.6 % (36.0-48.0); HEMOGLOBIN. 11.4 g/dL (12.0-16.0); MEAN CORPUSCULAR HEMOGLOBIN 31.3 pg (28.0-32.0); MEAN CORPUSCULAR VOLUME 97.3 fL (81.0-99.0); MEAN PLATELET VOLUME 9.9 fl (7.4-10.4); PLATELET 123 x1000/uL (130-400); RED BLOOD CELL COUNT 3.66 mill/uL (4.2-5.4); RED CELL DISTRIBUTION WIDTH 18.9 % (11.6-14.6)
[2021-05-31] MEDS: LACTULOSE 20G/30ML UDC PO SCH ×3 (05:37→21:39)
[2021-05-31 05:39] LABS: CHLORIDE 117 mEq/L (98-107)
[2021-05-31] MEDS: CLONIDINE 0.1MG TABLET PO PRN (06:50)
[2021-05-31] MEDS: LEVOTHYROXINE SODIUM 75MCG TABLET PO SCH (08:50)
[2021-05-31] MEDS: FUROSEMIDE 40MG/4ML VIAL IVP SCH (08:50)
[2021-05-31] MEDS: PANTOPRAZOLE SODIUM 40 MG/VIAL IV SCH (08:50)
[2021-05-31] MEDS: NYSTATIN/TRIAMCIN CREAM 15GM TOP SCH ×3 (08:51→18:04)
[2021-05-31] MEDS: ENOXAPARIN 30MG/0.3ML SYR SUBCUT SCH ×2 (08:51→21:40)
[2021-05-31] MEDS: POTASSIUM CHLORIDE 20MEQ/PACKET PO SCH (08:51)
[2021-05-31] MEDS: LEVETIRACETAM 500MG PREMIX 100 ML IV SCH ×2 (08:51→21:38)
[2021-05-31 10:11] LABS: NUCLEATED RED BLOOD CELLS 1 /100 WBC; PLATELET ESTIMATE SLIGHTLY DECREASED
[2021-05-31 10:15] LABS: BG BASE EXCESS 4.6 mmol/L (-2.0-2.0); BG CARBOXYHEMOGLOBIN 0.6 % (0.5-1.5); BG DEOXYHEMOGLOBIN 9.8 % (0.0-5.0); BG FRACTION INSPIRED OXYGEN 40; BG METHEMOGLOBIN 0.1 % (0.0-1.5); BG OXYGEN SATURATION 90.1 % (92.0-98.5); BG OXYHEMOGLOBIN 89.5 % (94.0-97.0); BG PCO2 32.6 mmHg (35.0-45.0); BG PH 7.536 (7.350-7.450); BG SAMPLE SITE RIGHT RADIAL; BG VENT MODE MASK - BIPAP
[2021-05-31] MEDS: DEXTROSE 5% WATER 1,000 ML IV SCH (14:06)
[2021-05-31] MEDS ORDERED: NALOXONE HCL 0.4MG/ML VIAL IV PRN (17:30)
[2021-05-31] MEDS: METHYLPREDNISOLONE SOD SUCC 40 MG/ML VIAL IV SCH (21:40)
[2021-05-31] MEDS: DIPHENHYDRAMINE 50MG/ML VIAL IV PRN (21:41)
[2021-06-01] VITALS (48 sets, daily range): BP systolic 122–158; BP diastolic 55–98
[2021-06-01] MEDS: IPRATROPIUM/ALBUTEROL 0.5-3(2.5)MG/3ML NEB HHN SCH ×6 (00:27→20:28)
[2021-06-01 06:11] LABS: HEMATOCRIT. 34.4 % (36.0-48.0); HEMOGLOBIN. 10.9 g/dL (12.0-16.0); MEAN CORPUSCULAR HEMOGLOBIN 31.3 pg (28.0-32.0); MEAN CORPUSCULAR VOLUME 98.4 fL (81.0-99.0); PLATELET 128 x1000/uL (130-400); RED BLOOD CELL COUNT 3.49 mill/uL (4.2-5.4); RED CELL DISTRIBUTION WIDTH 18.6 % (11.6-14.6)
[2021-06-01 06:13] LABS: CHLORIDE 116 mEq/L (98-107)
[2021-06-01] MEDS: BLOOD SUGAR DIAGNOSTIC STRIP TEST SCH ×5 (06:34→20:54)
[2021-06-01] MEDS: LACTULOSE 20G/30ML UDC PO SCH (06:34)
[2021-06-01] MEDS: DIPHENHYDRAMINE 50MG/ML VIAL IV SCH ×5 (06:34→23:19)
[2021-06-01] MEDS: INSULIN LISPRO 100 UNITS/ML SUBCUT SCH ×5 (06:35→21:02)
[2021-06-01] MEDS: METHYLPREDNISOLONE SOD SUCC 40 MG/ML VIAL IV SCH ×2 (08:39→20:39)
[2021-06-01] MEDS: PANTOPRAZOLE SODIUM 40 MG/VIAL IV SCH (08:39)
[2021-06-01] MEDS: ENOXAPARIN 30MG/0.3ML SYR SUBCUT SCH ×2 (08:40→20:39)
[2021-06-01] MEDS: FUROSEMIDE 40MG/4ML VIAL IVP SCH (08:40)
[2021-06-01] MEDS: LEVOTHYROXINE SODIUM 75MCG TABLET PO SCH (08:40)
[2021-06-01] MEDS: POTASSIUM CHLORIDE 20MEQ/PACKET PO SCH (08:40)
[2021-06-01] MEDS: LEVETIRACETAM 500MG PREMIX 100 ML IV SCH ×2 (08:40→20:40)
[2021-06-01] MEDS: NYSTATIN/TRIAMCIN CREAM 15GM TOP SCH ×3 (08:41→18:08)
[2021-06-01] MEDS: DEXTROSE 5% WATER 1,000 ML IV SCH (10:30)
[2021-06-01] MEDS: MORPHINE SULFATE 2 MG/ML CPJ (NOT FOR IM USE) IV PRN ×2 (13:19→21:00)
[2021-06-01 16:17] LABS: PLATELET ESTIMATE DECREASED
[2021-06-02] VITALS (48 sets, daily range): BP systolic 120–159; BP diastolic 59–90
[2021-06-02] MEDS: IPRATROPIUM/ALBUTEROL 0.5-3(2.5)MG/3ML NEB HHN SCH ×6 (00:22→19:52)
[2021-06-02] MEDS: MORPHINE SULFATE 2 MG/ML CPJ (NOT FOR IM USE) IV PRN ×4 (02:02→18:17)
[2021-06-02 05:54] LABS: CHLORIDE 114 mEq/L (98-107)
[2021-06-02 05:58] LABS: HEMATOCRIT. 33.3 % (36.0-48.0); HEMOGLOBIN. 10.4 g/dL (12.0-16.0); MEAN CORPUSCULAR HEMOGLOBIN 31.5 pg (28.0-32.0); MEAN CORPUSCULAR VOLUME 101.1 fL (81.0-99.0); MEAN PLATELET VOLUME 10.4 fl (7.4-10.4); PLATELET 118 x1000/uL (130-400); RED CELL DISTRIBUTION WIDTH 19.1 % (11.6-14.6)
[2021-06-02] MEDS: BLOOD SUGAR DIAGNOSTIC STRIP TEST SCH ×4 (06:00→23:34)
[2021-06-02] MEDS: DIPHENHYDRAMINE 50MG/ML VIAL IV SCH ×4 (07:13→23:46)
[2021-06-02] MEDS: INSULIN LISPRO 100 UNITS/ML SUBCUT SCH ×4 (07:18→23:34)
[2021-06-02 09:11] LABS: PLATELET ESTIMATE DECREASED
[2021-06-02] MEDS: PANTOPRAZOLE SODIUM 40 MG/VIAL IV SCH (09:32)
[2021-06-02] MEDS: LEVOTHYROXINE SODIUM 75MCG TABLET PO SCH (09:33)
[2021-06-02] MEDS: POTASSIUM CHLORIDE 20MEQ/PACKET PO SCH (09:33)
[2021-06-02] MEDS: LEVETIRACETAM 500MG PREMIX 100 ML IV SCH ×2 (09:33→20:46)
[2021-06-02] MEDS: ENOXAPARIN 30MG/0.3ML SYR SUBCUT SCH (09:33)
[2021-06-02] MEDS: FUROSEMIDE 40MG/4ML VIAL IVP SCH (09:33)
[2021-06-02] MEDS: METHYLPREDNISOLONE SOD SUCC 40 MG/ML VIAL IV SCH ×2 (09:33→20:46)
[2021-06-02] MEDS: NYSTATIN/TRIAMCIN CREAM 15GM TOP SCH ×3 (09:34→18:18)
[2021-06-02 13:28] LABS: INR 1.5; PROTHROMBIN TIME 15.5 sec (9.6-11.0)
[2021-06-02] MEDS: LORAZEPAM 2MG/ML CPJ IV PRN (20:46)
[2021-06-02] MEDS: DIPHENHYDRAMINE 50MG/ML VIAL IV PRN (21:10)
[2021-06-02] MEDS: RACEPINEPHRINE 2.25% 0.5ML NEB VIAL HHN PRN (21:14)
[2021-06-03] VITALS (40 sets, daily range): BP systolic 116–157; BP diastolic 51–96
[2021-06-03] MEDS: IPRATROPIUM/ALBUTEROL 0.5-3(2.5)MG/3ML NEB HHN SCH ×7 (00:12→23:41)
[2021-06-03 05:55] LABS: HEMATOCRIT. 35.1 % (36.0-48.0); HEMOGLOBIN. 11.2 g/dL (12.0-16.0); MEAN CORPUSCULAR HEMOGLOBIN 31.8 pg (28.0-32.0); MEAN CORPUSCULAR VOLUME 99.9 fL (81.0-99.0); MEAN PLATELET VOLUME 10.9 fl (7.4-10.4); PLATELET 112 x1000/uL (130-400); RED BLOOD CELL COUNT 3.51 mill/uL (4.2-5.4); RED CELL DISTRIBUTION WIDTH 19.1 % (11.6-14.6)
[2021-06-03 05:58] LABS: CHLORIDE 116 mEq/L (98-107)
[2021-06-03] MEDS: DIPHENHYDRAMINE 50MG/ML VIAL IV SCH ×4 (06:00→23:21)
[2021-06-03] MEDS: INSULIN LISPRO 100 UNITS/ML SUBCUT SCH ×4 (06:05→23:22)
[2021-06-03] MEDS: BLOOD SUGAR DIAGNOSTIC STRIP TEST SCH ×4 (06:05→23:17)
[2021-06-03] MEDS: MORPHINE SULFATE 2 MG/ML CPJ (NOT FOR IM USE) IV PRN (06:45)
[2021-06-03] MEDS ORDERED: SODIUM BICARBONATE 4% (2.4MEQ) 5ML VIAL IV ONE (08:18)
[2021-06-03] MEDS: LEVETIRACETAM 500MG PREMIX 100 ML IV SCH ×2 (09:19→22:19)
[2021-06-03] MEDS: FUROSEMIDE 40MG/4ML VIAL IVP SCH (09:19)
[2021-06-03] MEDS: METHYLPREDNISOLONE SOD SUCC 40 MG/ML VIAL IV SCH ×2 (09:19→22:19)
[2021-06-03] MEDS: PANTOPRAZOLE SODIUM 40 MG/VIAL IV SCH (09:19)
[2021-06-03] MEDS: POTASSIUM CHLORIDE 20MEQ/PACKET PO SCH (09:19)
[2021-06-03] MEDS: LEVOTHYROXINE SODIUM 75MCG TABLET PO SCH (09:19)
[2021-06-03] MEDS: NYSTATIN/TRIAMCIN CREAM 15GM TOP SCH ×3 (09:20→17:23)
[2021-06-03 11:15] LABS: PLATELET ESTIMATE DECREASED
[2021-06-03] MEDS: LACTULOSE 20G/30ML UDC PO SCH ×2 (13:51→22:19)
[2021-06-03] MEDS ORDERED: IOHEXOL-300 100 ML BOTTLE ONE (14:13)
[2021-06-03 20:09] LABS: FOLIC ACID (FOLATE) SERUM > 20.00 ng/mL (>5.38)
[2021-06-03] MEDS: RIFAXIMIN 550 MG TABLET PO SCH (22:19)
[2021-06-04] VITALS (43 sets, daily range): BP systolic 121–167; BP diastolic 66–107
[2021-06-04] MEDS: IPRATROPIUM/ALBUTEROL 0.5-3(2.5)MG/3ML NEB HHN SCH ×6 (03:40→23:34)
[2021-06-04] MEDS: BLOOD SUGAR DIAGNOSTIC STRIP TEST SCH ×4 (05:39→23:15)
[2021-06-04] MEDS: DIPHENHYDRAMINE 50MG/ML VIAL IV SCH ×4 (05:48→23:28)
[2021-06-04] MEDS: LACTULOSE 20G/30ML UDC PO SCH ×3 (05:48→21:03)
[2021-06-04] MEDS: INSULIN LISPRO 100 UNITS/ML SUBCUT SCH ×4 (05:48→23:31)
[2021-06-04 06:53] LABS: HEMATOCRIT. 37.3 % (36.0-48.0); HEMOGLOBIN. 11.7 g/dL (12.0-16.0); MEAN CORPUSCULAR HEMOGLOBIN 31.7 pg (28.0-32.0); MEAN CORPUSCULAR VOLUME 100.7 fL (81.0-99.0); PLATELET 103 x1000/uL (130-400); RED BLOOD CELL COUNT 3.71 mill/uL (4.2-5.4); RED CELL DISTRIBUTION WIDTH 19.4 % (11.6-14.6)
[2021-06-04 06:55] LABS: CHLORIDE 117 mEq/L (98-107)
[2021-06-04] MEDS: FUROSEMIDE 40MG/4ML VIAL IVP SCH (08:47)
[2021-06-04] MEDS: LEVOTHYROXINE SODIUM 75MCG TABLET PO SCH (08:47)
[2021-06-04] MEDS: RIFAXIMIN 550 MG TABLET PO SCH ×2 (08:47→21:03)
[2021-06-04] MEDS: LEVETIRACETAM 500MG PREMIX 100 ML IV SCH ×2 (08:47→21:03)
[2021-06-04] MEDS: MORPHINE SULFATE 2 MG/ML CPJ (NOT FOR IM USE) IV PRN (08:47)
[2021-06-04] MEDS: POTASSIUM CHLORIDE 20MEQ/PACKET PO SCH (08:47)
[2021-06-04] MEDS: PANTOPRAZOLE SODIUM 40 MG/VIAL IV SCH (08:47)
[2021-06-04] MEDS: METHYLPREDNISOLONE SOD SUCC 40 MG/ML VIAL IV SCH (08:48)
[2021-06-04] MEDS: NYSTATIN/TRIAMCIN CREAM 15GM TOP SCH ×3 (08:48→18:11)
[2021-06-04 11:48] LABS: PLATELET ESTIMATE SLIGHTLY DECREASED
[2021-06-04] MEDS: DULOXETINE HCL 20MG DR CAPSULE PO SCH (21:03)
[2021-06-05] VITALS (46 sets, daily range): BP systolic 118–167; BP diastolic 70–97
[2021-06-05] MEDS: IPRATROPIUM/ALBUTEROL 0.5-3(2.5)MG/3ML NEB HHN SCH ×5 (04:10→20:55)
[2021-06-05] MEDS: LACTULOSE 20G/30ML UDC PO SCH ×3 (05:29→23:14)
[2021-06-05] MEDS: INSULIN LISPRO 100 UNITS/ML SUBCUT SCH ×4 (05:48→23:21)
[2021-06-05] MEDS: BLOOD SUGAR DIAGNOSTIC STRIP TEST SCH ×4 (05:48→23:11)
[2021-06-05] MEDS: DIPHENHYDRAMINE 50MG/ML VIAL IV SCH ×4 (06:34→23:19)
[2021-06-05 06:53] LABS: HEMATOCRIT. 35.2 % (36.0-48.0); HEMOGLOBIN. 11.2 g/dL (12.0-16.0); MEAN CORPUSCULAR HEMOGLOBIN 31.6 pg (28.0-32.0); MEAN CORPUSCULAR VOLUME 99.1 fL (81.0-99.0); MEAN PLATELET VOLUME 10.4 fl (7.4-10.4); PLATELET 102 x1000/uL (130-400); RED BLOOD CELL COUNT 3.55 mill/uL (4.2-5.4); RED CELL DISTRIBUTION WIDTH 20.1 % (11.6-14.6)
[2021-06-05 06:58] LABS: CHLORIDE 118 mEq/L (98-107)
[2021-06-05 07:03] LABS: PHOSPHORUS 2.3 mg/dL (2.5-4.9)
[2021-06-05] MEDS: ENOXAPARIN 30MG/0.3ML SYR SUBCUT SCH ×2 (08:35→20:10)
[2021-06-05] MEDS: METHYLPREDNISOLONE SOD SUCC 40 MG/ML VIAL IV SCH (08:35)
[2021-06-05] MEDS: RIFAXIMIN 550 MG TABLET PO SCH ×2 (08:35→20:09)
[2021-06-05] MEDS: LEVOTHYROXINE SODIUM 75MCG TABLET PO SCH (08:35)
[2021-06-05] MEDS: POTASSIUM CHLORIDE 20MEQ/PACKET PO SCH (08:36)
[2021-06-05] MEDS: FUROSEMIDE 40MG/4ML VIAL IVP SCH (08:36)
[2021-06-05] MEDS: DULOXETINE HCL 20MG DR CAPSULE PO SCH ×2 (08:36→20:09)
[2021-06-05] MEDS: LEVETIRACETAM 500MG PREMIX 100 ML IV SCH ×2 (08:37→20:09)
[2021-06-05] MEDS: NYSTATIN/TRIAMCIN CREAM 15GM TOP SCH ×3 (08:37→17:48)
[2021-06-05] MEDS: PANTOPRAZOLE SODIUM 40 MG/VIAL IV SCH (08:37)
[2021-06-05] MEDS: METOLAZONE 5MG TABLET NG SCH ×2 (09:59→17:48)
[2021-06-05] MEDS: DEXTROSE 5% WATER 1,000 ML IV SCH (09:59)
[2021-06-05] MEDS ORDERED: POTASSIUM PHOS,M-BASIC-D-BASIC 20 MMOL in DEXT 5% WATER 243.3333 ML IV SCH (11:00)
[2021-06-05 13:49] LABS: PLATELET ESTIMATE DECREASED
[2021-06-05] MEDS: MORPHINE SULFATE 2 MG/ML CPJ (NOT FOR IM USE) IV PRN (18:40)
[2021-06-06] VITALS (49 sets, daily range): BP systolic 115–176; BP diastolic 58–105
[2021-06-06] MEDS: IPRATROPIUM/ALBUTEROL 0.5-3(2.5)MG/3ML NEB HHN SCH ×5 (00:39→20:25)
[2021-06-06 04:15] LABS: HEMATOCRIT. 36.2 % (36.0-48.0); HEMOGLOBIN. 11.5 g/dL (12.0-16.0); MEAN CORPUSCULAR HEMOGLOBIN 31.6 pg (28.0-32.0); MEAN CORPUSCULAR VOLUME 99.8 fL (81.0-99.0); MEAN PLATELET VOLUME 10.1 fl (7.4-10.4); PLATELET 91 x1000/uL (130-400); RED BLOOD CELL COUNT 3.63 mill/uL (4.2-5.4); RED CELL DISTRIBUTION WIDTH 20.2 % (11.6-14.6)
[2021-06-06 04:18] LABS: CHLORIDE 113 mEq/L (98-107)
[2021-06-06 04:24] LABS: PHOSPHORUS 3.1 mg/dL (2.5-4.9)
[2021-06-06] MEDS: DIPHENHYDRAMINE 50MG/ML VIAL IV SCH ×4 (06:34→23:43)
[2021-06-06] MEDS: LACTULOSE 20G/30ML UDC PO SCH ×3 (06:34→21:48)
[2021-06-06] MEDS: INSULIN LISPRO 100 UNITS/ML SUBCUT SCH ×4 (06:36→23:42)
[2021-06-06] MEDS: BLOOD SUGAR DIAGNOSTIC STRIP TEST SCH ×4 (06:59→23:38)
[2021-06-06] MEDS: PANTOPRAZOLE SODIUM 40 MG/VIAL IV SCH (08:24)
[2021-06-06] MEDS: METHYLPREDNISOLONE SOD SUCC 40 MG/ML VIAL IV SCH (08:24)
[2021-06-06] MEDS: ENOXAPARIN 30MG/0.3ML SYR SUBCUT SCH ×2 (08:24→21:48)
[2021-06-06] MEDS: FUROSEMIDE 40MG/4ML VIAL IVP SCH (08:25)
[2021-06-06] MEDS: METOLAZONE 5MG TABLET NG SCH ×2 (08:25→17:51)
[2021-06-06] MEDS: LEVETIRACETAM 500MG PREMIX 100 ML IV SCH ×2 (08:25→21:25)
[2021-06-06] MEDS: RIFAXIMIN 550 MG TABLET PO SCH ×2 (08:25→21:24)
[2021-06-06] MEDS: LEVOTHYROXINE SODIUM 75MCG TABLET PO SCH (08:25)
[2021-06-06] MEDS: POTASSIUM CHLORIDE 20MEQ/PACKET PO SCH (08:25)
[2021-06-06] MEDS: DULOXETINE HCL 20MG DR CAPSULE PO SCH ×2 (08:25→21:24)
[2021-06-06] MEDS: NYSTATIN/TRIAMCIN CREAM 15GM TOP SCH ×3 (08:26→17:51)
[2021-06-06] MEDS: DEXTROSE 5% WATER 1,000 ML IV SCH (08:26)
[2021-06-06] MEDS ORDERED: POTASSIUM PHOS,M-BASIC-D-BASIC 20 MMOL in DEXT 5% WATER 243.3333 ML IV NR (11:00)
[2021-06-06] MEDS: MORPHINE SULFATE 2 MG/ML CPJ (NOT FOR IM USE) IV PRN (11:30)
[2021-06-06 11:40] LABS: PLATELET ESTIMATE DECREASED
[2021-06-06] MEDS ORDERED: LORAZEPAM 2MG/ML CPJ IV PRN (12:30)
[2021-06-06] MEDS ORDERED: TIZANIDINE HCL 2MG TABLET PO SCH (21:00)
[2021-06-07] VITALS (28 sets, daily range): BP systolic 104–157; BP diastolic 55–93
[2021-06-07] MEDS: IPRATROPIUM/ALBUTEROL 0.5-3(2.5)MG/3ML NEB HHN SCH ×7 (00:16→20:13)
[2021-06-07] MEDS: LACTULOSE 20G/30ML UDC PO SCH ×3 (05:41→22:05)
[2021-06-07] MEDS: DIPHENHYDRAMINE 50MG/ML VIAL IV SCH ×2 (05:42→12:00)
[2021-06-07 05:46] LABS: HEMATOCRIT. 31.6 % (36.0-48.0); HEMOGLOBIN. 10.2 g/dL (12.0-16.0); MEAN CORPUSCULAR HEMOGLOBIN 32.1 pg (28.0-32.0); MEAN CORPUSCULAR VOLUME 99.4 fL (81.0-99.0); MEAN PLATELET VOLUME 10.1 fl (7.4-10.4); PLATELET 67 x1000/uL (130-400); RED BLOOD CELL COUNT 3.18 mill/uL (4.2-5.4); RED CELL DISTRIBUTION WIDTH 19.8 % (11.6-14.6)
[2021-06-07] MEDS: BLOOD SUGAR DIAGNOSTIC STRIP TEST SCH ×4 (06:24→21:17)
[2021-06-07] MEDS: INSULIN LISPRO 100 UNITS/ML SUBCUT SCH ×4 (06:26→21:17)
[2021-06-07 06:44] LABS: CHLORIDE 111 mEq/L (98-107)
[2021-06-07 06:52] LABS: PHOSPHORUS 3.1 mg/dL (2.5-4.9)
[2021-06-07 08:29] LABS: PLATELET ESTIMATE DECREASED
[2021-06-07] MEDS: ENOXAPARIN 30MG/0.3ML SYR SUBCUT SCH (09:06)
[2021-06-07] MEDS: METHYLPREDNISOLONE SOD SUCC 40 MG/ML VIAL IV SCH (09:06)
[2021-06-07] MEDS: PANTOPRAZOLE SODIUM 40 MG/VIAL IV SCH (09:06)
[2021-06-07] MEDS: FUROSEMIDE 40MG/4ML VIAL IVP SCH (09:06)
[2021-06-07] MEDS: POTASSIUM CHLORIDE 20MEQ/PACKET PO SCH (09:07)
[2021-06-07] MEDS: RIFAXIMIN 550 MG TABLET PO SCH ×2 (09:07→21:16)
[2021-06-07] MEDS: DULOXETINE HCL 20MG DR CAPSULE PO SCH ×2 (09:07→21:15)
[2021-06-07] MEDS: METOLAZONE 5MG TABLET NG SCH ×2 (09:07→18:32)
[2021-06-07] MEDS: DEXTROSE 5% WATER 1,000 ML IV SCH (09:08)
[2021-06-07] MEDS: NYSTATIN/TRIAMCIN CREAM 15GM TOP SCH ×2 (09:08→14:41)
[2021-06-07] MEDS: LEVOTHYROXINE SODIUM 75MCG TABLET PO SCH (09:09)
[2021-06-07] MEDS: LEVETIRACETAM 500MG PREMIX 100 ML IV SCH ×2 (09:10→21:15)
[2021-06-07] MEDS ORDERED: NALOXONE HCL 0.4MG/ML VIAL IV PRN (11:15)
[2021-06-07] MEDS ORDERED: INFLUENZA VACCINE 05/PF 0.5 ML SYRINGE IM ONE (13:00)
[2021-06-07] MEDS: TIZANIDINE HCL 2MG TABLET PO SCH (21:16)
[2021-06-08] VITALS (12 sets, daily range): BP systolic 103–162; BP diastolic 54–85
[2021-06-08] MEDS: IPRATROPIUM/ALBUTEROL 0.5-3(2.5)MG/3ML NEB HHN SCH ×6 (00:38→20:52)
[2021-06-08] MEDS: LACTULOSE 20G/30ML UDC PO SCH ×3 (06:39→21:14)
[2021-06-08] MEDS: BLOOD SUGAR DIAGNOSTIC STRIP TEST SCH ×4 (08:05→20:31)
[2021-06-08] MEDS: LEVOTHYROXINE SODIUM 75MCG TABLET PO SCH (08:17)
[2021-06-08] MEDS: INSULIN LISPRO 100 UNITS/ML SUBCUT SCH ×4 (08:25→20:37)
[2021-06-08 09:25] LABS: BG BASE EXCESS 7.2 mmol/L (-2.0-2.0); BG CARBOXYHEMOGLOBIN 1.2 % (0.5-1.5); BG DEOXYHEMOGLOBIN 6.5 % (0.0-5.0); BG FRACTION INSPIRED OXYGEN 30; BG HCO3 ACT 30.4 mmol/L (22.0-26.0); BG METHEMOGLOBIN 0.3 % (0.0-1.5); BG OXYGEN SATURATION 93.4 % (92.0-98.5); BG PCO2 37.5 mmHg (35.0-45.0); BG PH 7.526 (7.350-7.450); BG PO2 66.1 mmHg (75.0-100.0); BG SAMPLE SITE RIGHT RADIAL; BG TOTAL HEMOGLOBIN 10.8 g/dL (12.0-18.0); BG VENT MODE MASK - BIPAP
[2021-06-08] MEDS: METOLAZONE 5MG TABLET NG SCH ×2 (09:31→16:30)
[2021-06-08] MEDS: RIFAXIMIN 550 MG TABLET PO SCH ×2 (09:33→20:30)
[2021-06-08] MEDS: LEVETIRACETAM 500MG PREMIX 100 ML IV SCH ×2 (09:35→20:30)
[2021-06-08] MEDS: FUROSEMIDE 40MG/4ML VIAL IVP SCH (09:37)
[2021-06-08] MEDS: POTASSIUM CHLORIDE 20MEQ/PACKET PO SCH (09:39)
[2021-06-08] MEDS: DEXTROSE 5% WATER 1,000 ML IV SCH (09:43)
[2021-06-08] MEDS: DULOXETINE HCL 20MG DR CAPSULE PO SCH ×2 (09:44→20:30)
[2021-06-08] MEDS: TIZANIDINE HCL 2MG TABLET PO SCH (20:30)
[2021-06-09] VITALS (12 sets, daily range): BP systolic 100–136; BP diastolic 57–77
[2021-06-09] MEDS: IPRATROPIUM/ALBUTEROL 0.5-3(2.5)MG/3ML NEB HHN SCH ×6 (01:00→21:13)
[2021-06-09] MEDS: LACTULOSE 20G/30ML UDC PO SCH ×3 (06:12→22:36)
[2021-06-09 07:10] LABS: CHLORIDE 106 mEq/L (98-107)
[2021-06-09] MEDS: BLOOD SUGAR DIAGNOSTIC STRIP TEST SCH ×4 (07:30→21:00)
[2021-06-09] MEDS: INSULIN LISPRO 100 UNITS/ML SUBCUT SCH ×3 (08:00→18:12)
[2021-06-09 08:19] LABS: BASOPHILS % 0.2 % (0.0-2.0); EOSINOPHILS % 2.9 % (0.0-5.0); HEMATOCRIT. 30.1 % (36.0-48.0); HEMOGLOBIN. 9.6 g/dL (12.0-16.0); LYMPHOCYTES % 9.4 % (20.0-50.0); MEAN CORPUSCULAR HEMOGLOBIN 32.4 pg (28.0-32.0); MEAN CORPUSCULAR VOLUME 101.7 fL (81.0-99.0); MONOCYTES % 2.7 % (2.0-8.0); NEUTROPHILS % 84.8 % (40.0-76.0); RED BLOOD CELL COUNT 2.96 mill/uL (4.2-5.4); RED CELL DISTRIBUTION WIDTH 20.6 % (11.6-14.6)
[2021-06-09] MEDS: FUROSEMIDE 40MG/4ML VIAL IVP SCH (08:43)
[2021-06-09] MEDS: LEVETIRACETAM 500MG PREMIX 100 ML IV SCH (08:43)
[2021-06-09] MEDS: POTASSIUM CHLORIDE 20MEQ/PACKET PO SCH (08:43)
[2021-06-09] MEDS: DULOXETINE HCL 20MG DR CAPSULE PO SCH ×2 (08:44→22:36)
[2021-06-09] MEDS: METOLAZONE 5MG TABLET NG SCH (08:44)
[2021-06-09] MEDS: LEVOTHYROXINE SODIUM 75MCG TABLET PO SCH (08:44)
[2021-06-09] MEDS ORDERED: POTASSIUM CHLORIDE INJ 60 MEQ in DEXT 5% WATER 250 ML IV ONE (09:30)
[2021-06-09 09:50] LABS: PLATELET 53 x1000/uL (130-400)
[2021-06-09] MEDS ORDERED: POTASSIUM CHLORIDE 20MEQ/PACKET PO NR (10:00)
[2021-06-09] MEDS ORDERED: POTASSIUM CHLORIDE INJ 40 MEQ in DEXT 5% WATER 230 ML IV ONE ×2 (10:00→15:00)
[2021-06-09] MEDS: DEXTROSE 5% WATER 1,000 ML IV SCH (11:51)
[2021-06-09] MEDS: TIZANIDINE HCL 2MG TABLET PO SCH (22:54)
[2021-06-10] VITALS (12 sets, daily range): BP systolic 106–162; BP diastolic 62–84
[2021-06-10] MEDS: IPRATROPIUM/ALBUTEROL 0.5-3(2.5)MG/3ML NEB HHN SCH ×6 (00:14→20:45)
[2021-06-10] MEDS: LEVETIRACETAM 500MG PREMIX 100 ML IV SCH ×3 (04:01→20:31)
[2021-06-10] MEDS: LACTULOSE 20G/30ML UDC PO SCH ×3 (05:36→20:34)
[2021-06-10] MEDS: BLOOD SUGAR DIAGNOSTIC STRIP TEST SCH ×4 (07:45→20:32)
[2021-06-10 07:57] LABS: BASOPHILS % 0.5 % (0.0-2.0); EOSINOPHILS % 2.9 % (0.0-5.0); HEMATOCRIT. 32.8 % (36.0-48.0); HEMOGLOBIN. 10.3 g/dL (12.0-16.0); LYMPHOCYTES % 8.6 % (20.0-50.0); MEAN CORPUSCULAR HEMOGLOBIN 32.3 pg (28.0-32.0); MEAN CORPUSCULAR VOLUME 102.6 fL (81.0-99.0); MONOCYTES % 2.5 % (2.0-8.0); NEUTROPHILS % 85.5 % (40.0-76.0); PLATELET 65 x1000/uL (130-400); RED BLOOD CELL COUNT 3.19 mill/uL (4.2-5.4); RED CELL DISTRIBUTION WIDTH 21.2 % (11.6-14.6)
[2021-06-10] MEDS: INSULIN LISPRO 100 UNITS/ML SUBCUT SCH ×5 (08:00→20:34)
[2021-06-10 08:10] LABS: CHLORIDE 105 mEq/L (98-107)
[2021-06-10] MEDS: DULOXETINE HCL 20MG DR CAPSULE PO SCH ×2 (09:03→20:31)
[2021-06-10] MEDS: LEVOTHYROXINE SODIUM 75MCG TABLET PO SCH (09:03)
[2021-06-10] MEDS: POTASSIUM CHLORIDE 20MEQ/PACKET PO SCH (09:04)
[2021-06-10] MEDS: MORPHINE SULFATE 2 MG/ML CPJ (NOT FOR IM USE) IV PRN (17:30)
[2021-06-10] MEDS: TIZANIDINE HCL 2MG TABLET PO SCH (20:31)
[2021-06-10] MEDS: RIFAXIMIN 550 MG TABLET PO SCH (20:31)
[2021-06-11] VITALS (13 sets, daily range): BP systolic 105–136; BP diastolic 52–69
[2021-06-11] MEDS: IPRATROPIUM/ALBUTEROL 0.5-3(2.5)MG/3ML NEB HHN SCH ×6 (00:45→21:17)
[2021-06-11] MEDS: MORPHINE SULFATE 2 MG/ML CPJ (NOT FOR IM USE) IV PRN ×5 (01:32→18:24)
[2021-06-11] MEDS: LACTULOSE 20G/30ML UDC PO SCH ×3 (05:45→21:39)
[2021-06-11 06:14] LABS: CHLORIDE 104 mEq/L (98-107)
[2021-06-11 06:15] LABS: INR 1.4; PROTHROMBIN TIME 14.9 sec (9.6-11.0)
[2021-06-11 06:31] LABS: BASOPHILS % 0.2 % (0.0-2.0); EOSINOPHILS % 2.7 % (0.0-5.0); HEMATOCRIT. 28.2 % (36.0-48.0); HEMOGLOBIN. 9.3 g/dL (12.0-16.0); LYMPHOCYTES % 11.6 % (20.0-50.0); MEAN CORPUSCULAR HEMOGLOBIN 33.2 pg (28.0-32.0); MEAN CORPUSCULAR VOLUME 101.1 fL (81.0-99.0); MONOCYTES % 2.7 % (2.0-8.0); NEUTROPHILS % 82.8 % (40.0-76.0); RED BLOOD CELL COUNT 2.79 mill/uL (4.2-5.4)
[2021-06-11 08:09] LABS: MEAN PLATELET VOLUME 10.3 fl (7.4-10.4); PLATELET 59 x1000/uL (130-400)
[2021-06-11] MEDS: BLOOD SUGAR DIAGNOSTIC STRIP TEST SCH ×4 (08:22→21:40)
[2021-06-11] MEDS: LEVOTHYROXINE SODIUM 75MCG TABLET PO SCH (08:27)
[2021-06-11] MEDS: INSULIN LISPRO 100 UNITS/ML SUBCUT SCH ×4 (08:40→21:00)
[2021-06-11] MEDS: DULOXETINE HCL 20MG DR CAPSULE PO SCH (08:50)
[2021-06-11] MEDS: RIFAXIMIN 550 MG TABLET PO SCH ×2 (08:50→21:38)
[2021-06-11] MEDS: LEVETIRACETAM 500MG PREMIX 100 ML IV SCH ×2 (08:50→20:20)
[2021-06-11] MEDS: POTASSIUM CHLORIDE 20MEQ/PACKET PO SCH (08:55)
[2021-06-11] MEDS ORDERED: POTASSIUM CHLORIDE 20MEQ TABLET SR PO NR (11:00)
[2021-06-11] MEDS: PROPRANOLOL HCL 10MG TABLET PO SCH ×2 (11:20→21:39)
[2021-06-11] MEDS: DULOXETINE HCL 30MG DR CAPSULE PO SCH (21:38)
[2021-06-11] MEDS: TIZANIDINE HCL 2MG TABLET PO SCH (21:39)
[2021-06-12] VITALS (12 sets, daily range): BP systolic 93–122; BP diastolic 38–71
[2021-06-12] MEDS: IPRATROPIUM/ALBUTEROL 0.5-3(2.5)MG/3ML NEB HHN SCH ×6 (01:18→20:24)
[2021-06-12] MEDS: LACTULOSE 20G/30ML UDC PO SCH ×3 (05:05→21:42)
[2021-06-12 05:55] LABS: BASOPHILS % 0.2 % (0.0-2.0); CHLORIDE 108 mEq/L (98-107); EOSINOPHILS % 4.3 % (0.0-5.0); HEMATOCRIT. 26.8 % (36.0-48.0); HEMOGLOBIN. 8.8 g/dL (12.0-16.0); LYMPHOCYTES % 12.3 % (20.0-50.0); MEAN CORPUSCULAR HEMOGLOBIN 33.6 pg (28.0-32.0); MEAN CORPUSCULAR VOLUME 102.3 fL (81.0-99.0); MONOCYTES % 4.3 % (2.0-8.0); NEUTROPHILS % 78.9 % (40.0-76.0); RED BLOOD CELL COUNT 2.62 mill/uL (4.2-5.4)
[2021-06-12 07:09] LABS: PLATELET 39 x1000/uL (130-400)
[2021-06-12] MEDS: INSULIN LISPRO 100 UNITS/ML SUBCUT SCH ×4 (08:00→21:00)
[2021-06-12] MEDS: MORPHINE SULFATE 2 MG/ML CPJ (NOT FOR IM USE) IV PRN ×3 (08:26→20:37)
[2021-06-12] MEDS: BLOOD SUGAR DIAGNOSTIC STRIP TEST SCH ×4 (08:27→21:44)
[2021-06-12] MEDS: LEVOTHYROXINE SODIUM 75MCG TABLET PO SCH (08:28)
[2021-06-12] MEDS: RIFAXIMIN 550 MG TABLET PO SCH ×2 (08:44→20:35)
[2021-06-12] MEDS: POTASSIUM CHLORIDE 20MEQ/PACKET PO SCH (08:44)
[2021-06-12] MEDS: PROPRANOLOL HCL 10MG TABLET PO SCH ×2 (08:45→20:35)
[2021-06-12] MEDS: DULOXETINE HCL 30MG DR CAPSULE PO SCH ×2 (08:45→20:35)
[2021-06-12] MEDS: LEVETIRACETAM 500MG PREMIX 100 ML IV SCH ×2 (08:47→20:38)
[2021-06-12] MEDS: TIZANIDINE HCL 2MG TABLET PO SCH (20:35)
[2021-06-13] VITALS (12 sets, daily range): BP systolic 99–135; BP diastolic 50–89
[2021-06-13] MEDS: IPRATROPIUM/ALBUTEROL 0.5-3(2.5)MG/3ML NEB HHN SCH ×6 (00:10→20:53)
[2021-06-13] MEDS: LACTULOSE 20G/30ML UDC PO SCH ×3 (05:51→18:08)
[2021-06-13] MEDS: INSULIN LISPRO 100 UNITS/ML SUBCUT SCH ×4 (08:00→21:46)
[2021-06-13] MEDS: BLOOD SUGAR DIAGNOSTIC STRIP TEST SCH ×4 (08:16→21:00)
[2021-06-13] MEDS: LEVOTHYROXINE SODIUM 75MCG TABLET PO SCH (08:47)
[2021-06-13] MEDS: PROPRANOLOL HCL 10MG TABLET PO SCH ×2 (08:51→21:45)
[2021-06-13] MEDS: POTASSIUM CHLORIDE 20MEQ/PACKET PO SCH (08:52)
[2021-06-13] MEDS: RIFAXIMIN 550 MG TABLET PO SCH ×2 (08:52→21:45)
[2021-06-13] MEDS: LEVETIRACETAM 500MG PREMIX 100 ML IV SCH ×2 (08:53→21:50)
[2021-06-13] MEDS: DULOXETINE HCL 30MG DR CAPSULE PO SCH ×2 (09:09→21:45)
[2021-06-13 10:52] LABS: BASOPHILS % 0.5 % (0.0-2.0); EOSINOPHILS % 3.5 % (0.0-5.0); HEMATOCRIT. 26.4 % (36.0-48.0); HEMOGLOBIN. 8.6 g/dL (12.0-16.0); LYMPHOCYTES % 26.1 % (20.0-50.0); MEAN CORPUSCULAR HEMOGLOBIN 33.9 pg (28.0-32.0); MEAN CORPUSCULAR VOLUME 104.5 fL (81.0-99.0); MONOCYTES % 5.1 % (2.0-8.0); NEUTROPHILS % 64.8 % (40.0-76.0); RED BLOOD CELL COUNT 2.52 mill/uL (4.2-5.4); RED CELL DISTRIBUTION WIDTH 22.4 % (11.6-14.6)
[2021-06-13] MEDS ORDERED: LACTULOSE 300 ML in WATER FOR IRRIGATION,STERILE 700 ML IR SCH (11:00)
[2021-06-13 11:01] LABS: CHLORIDE 109 mEq/L (98-107)
[2021-06-13 11:19] LABS: PLATELET 41 x1000/uL (130-400)
[2021-06-13] MEDS: MORPHINE SULFATE 2 MG/ML CPJ (NOT FOR IM USE) IV PRN ×2 (11:58→16:16)
[2021-06-13] MEDS ORDERED: LACTULOSE 20G/30ML UDC PO SCH ×2 (12:00→14:45)
[2021-06-13] MEDS ORDERED: PHYTONADIONE 10MG/ML AMP SUBCUT NR (14:45)
[2021-06-13] MEDS ORDERED: NALOXONE HCL 0.4MG/ML VIAL IV PRN (21:15)
[2021-06-13] MEDS: TIZANIDINE HCL 2MG TABLET PO SCH (21:45)
[2021-06-13] MEDS: ONDANSETRON HCL 4MG/2ML INJ IV PRN (21:46)
[2021-06-13 23:34] LABS: INR 1.4; PROTHROMBIN TIME 14.8 sec (9.6-11.0)
[2021-06-14] VITALS (19 sets, daily range): BP systolic 91–126; BP diastolic 35–68
[2021-06-14] MEDS ORDERED: LACTULOSE 20G/30ML UDC PO SCH
[2021-06-14] MEDS: IPRATROPIUM/ALBUTEROL 0.5-3(2.5)MG/3ML NEB HHN SCH ×4 (00:37→13:19)
[2021-06-14 07:37] LABS: BASOPHILS % 0.6 % (0.0-2.0); CHLORIDE 112 mEq/L (98-107); EOSINOPHILS % 3.4 % (0.0-5.0); HEMATOCRIT. 22.8 % (36.0-48.0); HEMOGLOBIN. 7.4 g/dL (12.0-16.0); LYMPHOCYTES % 29.7 % (20.0-50.0); MEAN CORPUSCULAR HEMOGLOBIN 33.7 pg (28.0-32.0); MEAN CORPUSCULAR VOLUME 103.4 fL (81.0-99.0); MEAN PLATELET VOLUME 8.7 fl (7.4-10.4); MONOCYTES % 6.3 % (2.0-8.0); PLATELET 53 x1000/uL (130-400); RED BLOOD CELL COUNT 2.21 mill/uL (4.2-5.4); RED CELL DISTRIBUTION WIDTH 22.7 % (11.6-14.6)
[2021-06-14 07:43] LABS: PHOSPHORUS 2.9 mg/dL (2.5-4.9)
[2021-06-14] MEDS ORDERED: PHYTONADIONE 10MG/ML AMP SUBCUT NR (08:00)
[2021-06-14] MEDS: INSULIN LISPRO 100 UNITS/ML SUBCUT SCH ×4 (08:00→21:00)
[2021-06-14] MEDS: BLOOD SUGAR DIAGNOSTIC STRIP TEST SCH ×4 (08:05→21:00)
[2021-06-14] MEDS: PROPRANOLOL HCL 10MG TABLET PO SCH ×2 (09:00→21:32)
[2021-06-14] MEDS: LEVOTHYROXINE SODIUM 75MCG TABLET PO SCH (09:30)
[2021-06-14] MEDS: LEVETIRACETAM 500MG PREMIX 100 ML IV SCH ×2 (09:30→21:32)
[2021-06-14] MEDS: DULOXETINE HCL 30MG DR CAPSULE PO SCH ×2 (09:35→21:31)
[2021-06-14] MEDS: RIFAXIMIN 550 MG TABLET PO SCH ×2 (09:36→21:32)
[2021-06-14] MEDS: POTASSIUM CHLORIDE 20MEQ/PACKET PO SCH (09:39)
[2021-06-14] MEDS ORDERED: SODIUM BICARBONATE 4% (2.4MEQ) 5ML VIAL IV ONE (14:19)
[2021-06-14] MEDS: MORPHINE SULFATE 2 MG/ML CPJ (NOT FOR IM USE) IV PRN (17:15)
[2021-06-14] MEDS: TIZANIDINE HCL 2MG TABLET PO SCH (21:31)
[2021-06-15] VITALS (19 sets, daily range): BP systolic 93–121; BP diastolic 39–65
[2021-06-15] MEDS ORDERED: PHYTONADIONE 10MG/ML AMP SUBCUT NR (02:00)
[2021-06-15] MEDS: LEVOTHYROXINE SODIUM 75MCG TABLET PO SCH (06:41)
[2021-06-15] MEDS: BLOOD SUGAR DIAGNOSTIC STRIP TEST SCH ×4 (07:30→21:20)
[2021-06-15] MEDS: INSULIN LISPRO 100 UNITS/ML SUBCUT SCH ×4 (08:00→21:00)
[2021-06-15 08:56] LABS: BASOPHILS % 0.5 % (0.0-2.0); CHLORIDE 114 mEq/L (98-107); HEMATOCRIT. 24.3 % (36.0-48.0); HEMOGLOBIN. 7.9 g/dL (12.0-16.0); MEAN CORPUSCULAR HEMOGLOBIN 33.1 pg (28.0-32.0); MEAN PLATELET VOLUME 9.4 fl (7.4-10.4); MONOCYTES % 7.7 % (2.0-8.0); NEUTROPHILS % 54.8 % (40.0-76.0); RED BLOOD CELL COUNT 2.38 mill/uL (4.2-5.4); RED CELL DISTRIBUTION WIDTH 22.9 % (11.6-14.6)
[2021-06-15] MEDS: PROPRANOLOL HCL 10MG TABLET PO SCH ×2 (09:00→20:53)
[2021-06-15 09:22] LABS: PLATELET 40 x1000/uL (130-400)
[2021-06-15] MEDS: DULOXETINE HCL 30MG DR CAPSULE PO SCH ×2 (09:54→20:53)
[2021-06-15] MEDS: POTASSIUM CHLORIDE 20MEQ/PACKET PO SCH (09:54)
[2021-06-15] MEDS: RIFAXIMIN 550 MG TABLET PO SCH ×2 (09:54→20:52)
[2021-06-15] MEDS: LEVETIRACETAM 500MG PREMIX 100 ML IV SCH (09:54)
[2021-06-15] MEDS: TIZANIDINE HCL 2MG TABLET PO SCH (20:52)
[2021-06-15] MEDS: LEVETIRACETAM 500MG TABLET PO SCH (20:53)
[2021-06-15 21:50] LABS: PLATELET ESTIMATE MARKEDLY DECREASED
[2021-06-16] VITALS (12 sets, daily range): BP systolic 98–124; BP diastolic 49–75
[2021-06-16 06:54] LABS: BASOPHILS % 0.4 % (0.0-2.0); EOSINOPHILS % 4.3 % (0.0-5.0); HEMATOCRIT. 26.1 % (36.0-48.0); HEMOGLOBIN. 8.6 g/dL (12.0-16.0); MEAN CORPUSCULAR HEMOGLOBIN 33.4 pg (28.0-32.0); MEAN CORPUSCULAR VOLUME 101.8 fL (81.0-99.0); MEAN PLATELET VOLUME 9.4 fl (7.4-10.4); MONOCYTES % 9.5 % (2.0-8.0); NEUTROPHILS % 51.8 % (40.0-76.0); PLATELET 51 x1000/uL (130-400); RED BLOOD CELL COUNT 2.56 mill/uL (4.2-5.4); RED CELL DISTRIBUTION WIDTH 23.3 % (11.6-14.6)
[2021-06-16 06:59] LABS: CHLORIDE 111 mEq/L (98-107)
[2021-06-16] MEDS: BLOOD SUGAR DIAGNOSTIC STRIP TEST SCH ×4 (07:30→21:25)
[2021-06-16] MEDS: INSULIN LISPRO 100 UNITS/ML SUBCUT SCH ×4 (08:00→21:00)
[2021-06-16] MEDS: LEVETIRACETAM 500MG TABLET PO SCH ×2 (08:55→21:24)
[2021-06-16] MEDS: LEVOTHYROXINE SODIUM 75MCG TABLET PO SCH (08:56)
[2021-06-16] MEDS: POTASSIUM CHLORIDE 20MEQ/PACKET PO SCH (08:56)
[2021-06-16] MEDS: PROPRANOLOL HCL 10MG TABLET PO SCH ×2 (08:56→21:24)
[2021-06-16] MEDS: DULOXETINE HCL 30MG DR CAPSULE PO SCH ×2 (08:56→21:24)
[2021-06-16] MEDS: MORPHINE SULFATE 2 MG/ML CPJ (NOT FOR IM USE) IV PRN (11:59)
[2021-06-16] MEDS: ONDANSETRON HCL 4MG/2ML INJ IV PRN (14:30)
[2021-06-16] MEDS: TIZANIDINE HCL 2MG TABLET PO SCH (21:24)
[2021-06-17] VITALS (12 sets, daily range): BP systolic 105–143; BP diastolic 50–100
[2021-06-17 06:16] LABS: BASOPHILS % 0.4 % (0.0-2.0); EOSINOPHILS % 4.3 % (0.0-5.0); HEMATOCRIT. 26.9 % (36.0-48.0); LYMPHOCYTES % 32.1 % (20.0-50.0); MEAN CORPUSCULAR HEMOGLOBIN 33.7 pg (28.0-32.0); MEAN CORPUSCULAR VOLUME 100.5 fL (81.0-99.0); MEAN PLATELET VOLUME 8.7 fl (7.4-10.4); MONOCYTES % 12.1 % (2.0-8.0); NEUTROPHILS % 51.1 % (40.0-76.0); RED BLOOD CELL COUNT 2.68 mill/uL (4.2-5.4); RED CELL DISTRIBUTION WIDTH 22.7 % (11.6-14.6)
[2021-06-17 06:51] LABS: CHLORIDE 111 mEq/L (98-107)
[2021-06-17 07:17] LABS: PLATELET 49 x1000/uL (130-400)
[2021-06-17] MEDS: INSULIN LISPRO 100 UNITS/ML SUBCUT SCH ×4 (08:00→20:37)
[2021-06-17] MEDS: BLOOD SUGAR DIAGNOSTIC STRIP TEST SCH ×4 (08:13→20:37)
[2021-06-17] MEDS: PROPRANOLOL HCL 10MG TABLET PO SCH ×2 (08:14→21:23)
[2021-06-17] MEDS: LEVOTHYROXINE SODIUM 75MCG TABLET PO SCH (08:25)
[2021-06-17] MEDS: LEVETIRACETAM 500MG TABLET PO SCH ×2 (09:50→21:23)
[2021-06-17] MEDS: DULOXETINE HCL 30MG DR CAPSULE PO SCH ×2 (09:51→21:22)
[2021-06-17] MEDS: POTASSIUM CHLORIDE 20MEQ/PACKET PO SCH (09:51)
[2021-06-17] MEDS: MORPHINE SULFATE 2 MG/ML CPJ (NOT FOR IM USE) IV PRN ×2 (11:38→16:03)
[2021-06-17] MEDS ORDERED: LACTULOSE 20G/30ML UDC PO SCH ×2 (14:45→23:39)
[2021-06-17] MEDS: LACTULOSE 20G/30ML UDC PO SCH ×2 (16:55→21:22)
[2021-06-17] MEDS: RIFAXIMIN 550 MG TABLET PO SCH (18:00)
[2021-06-17] MEDS: TIZANIDINE HCL 2MG TABLET PO SCH (21:22)
[2021-06-17] MEDS: BUSPIRONE HCL 5MG TABLET PO SCH (21:23)
[2021-06-18] VITALS (12 sets, daily range): BP systolic 90–130; BP diastolic 43–72
[2021-06-18] MEDS: LACTULOSE 20G/30ML UDC PO SCH ×4 (00:04→17:19)
[2021-06-18] MEDS ORDERED: LACTULOSE 20G/30ML UDC PO SCH (00:15)
[2021-06-18] MEDS: RIFAXIMIN 550 MG TABLET PO SCH ×2 (06:06→17:02)
[2021-06-18] MEDS: LEVOTHYROXINE SODIUM 75MCG TABLET PO SCH (07:30)
[2021-06-18] MEDS: BLOOD SUGAR DIAGNOSTIC STRIP TEST SCH ×4 (07:30→21:00)
[2021-06-18] MEDS: INSULIN LISPRO 100 UNITS/ML SUBCUT SCH ×4 (08:00→21:50)
[2021-06-18 11:25] LABS: INR 1.3; PROTHROMBIN TIME 14.1 sec (9.6-11.0)
[2021-06-18 11:27] LABS: HEMATOCRIT. 26.6 % (36.0-48.0); HEMOGLOBIN. 8.9 g/dL (12.0-16.0); MEAN CORPUSCULAR HEMOGLOBIN 34.2 pg (28.0-32.0); MEAN CORPUSCULAR VOLUME 102.9 fL (81.0-99.0); MEAN PLATELET VOLUME 9.4 fl (7.4-10.4); PLATELET 56 x1000/uL (130-400); RED BLOOD CELL COUNT 2.59 mill/uL (4.2-5.4); RED CELL DISTRIBUTION WIDTH 22.6 % (11.6-14.6)
[2021-06-18 11:34] LABS: CHLORIDE 112 mEq/L (98-107)
[2021-06-18] MEDS: DULOXETINE HCL 30MG DR CAPSULE PO SCH ×2 (12:13→12:25)
[2021-06-18] MEDS: BUSPIRONE HCL 5MG TABLET PO SCH ×2 (12:14→20:27)
[2021-06-18] MEDS: LEVETIRACETAM 500MG TABLET PO SCH ×2 (12:14→20:27)
[2021-06-18] MEDS: PROPRANOLOL HCL 10MG TABLET PO SCH ×2 (12:14→12:25)
[2021-06-18] MEDS: MORPHINE SULFATE 2 MG/ML CPJ (NOT FOR IM USE) IV PRN ×2 (14:09→20:27)
[2021-06-18 15:34] LABS: PLATELET ESTIMATE DECREASED
[2021-06-18] MEDS: NEOMYCIN 500MG TABLET PO SCH (20:06)
[2021-06-18] MEDS: TIZANIDINE HCL 2MG TABLET PO SCH (20:27)
[2021-06-19] VITALS (12 sets, daily range): BP systolic 90–137; BP diastolic 53–89
[2021-06-19] MEDS: LACTULOSE 20G/30ML UDC PO SCH ×5 (00:30→23:56)
[2021-06-19] MEDS: RIFAXIMIN 550 MG TABLET PO SCH ×2 (04:51→17:47)
[2021-06-19] MEDS: SIMETHICONE 80MG TABLET CHEW PO PRN ×2 (04:51→14:04)
[2021-06-19] MEDS: INSULIN LISPRO 100 UNITS/ML SUBCUT SCH ×4 (08:00→21:00)
[2021-06-19] MEDS: BLOOD SUGAR DIAGNOSTIC STRIP TEST SCH ×4 (08:07→21:00)
[2021-06-19 08:24] LABS: HEMATOCRIT. 28.7 % (36.0-48.0); HEMOGLOBIN. 9.3 g/dL (12.0-16.0); MEAN CORPUSCULAR HEMOGLOBIN 33.2 pg (28.0-32.0); MEAN CORPUSCULAR VOLUME 102.3 fL (81.0-99.0); MEAN PLATELET VOLUME 8.8 fl (7.4-10.4); PLATELET 69 x1000/uL (130-400); RED BLOOD CELL COUNT 2.81 mill/uL (4.2-5.4); RED CELL DISTRIBUTION WIDTH 22.4 % (11.6-14.6)
[2021-06-19] MEDS: PROPRANOLOL HCL 10MG TABLET PO SCH ×2 (09:00→22:30)
[2021-06-19 09:03] LABS: CHLORIDE 110 mEq/L (98-107)
[2021-06-19] MEDS: BUSPIRONE HCL 5MG TABLET PO SCH ×2 (09:11→22:30)
[2021-06-19] MEDS: NEOMYCIN 500MG TABLET PO SCH ×2 (09:11→17:47)
[2021-06-19] MEDS: DULOXETINE HCL 30MG DR CAPSULE PO SCH ×2 (09:11→22:30)
[2021-06-19] MEDS: LEVETIRACETAM 500MG TABLET PO SCH ×2 (09:11→22:30)
[2021-06-19] MEDS: MORPHINE SULFATE 2 MG/ML CPJ (NOT FOR IM USE) IV PRN ×3 (13:51→22:41)
[2021-06-19 15:21] LABS: ATYPICAL LYMPHOCYTES 1
[2021-06-19 15:22] LABS: PLATELET ESTIMATE DECREASED
[2021-06-19] MEDS: TIZANIDINE HCL 2MG TABLET PO SCH (22:31)
[2021-06-20] VITALS (12 sets, daily range): BP systolic 104–137; BP diastolic 48–72
[2021-06-20] MEDS: RIFAXIMIN 550 MG TABLET PO SCH ×2 (05:52→18:00)
[2021-06-20] MEDS: LACTULOSE 20G/30ML UDC PO SCH ×3 (05:52→18:00)
[2021-06-20] MEDS: BLOOD SUGAR DIAGNOSTIC STRIP TEST SCH ×3 (07:30→17:30)
[2021-06-20] MEDS: INSULIN LISPRO 100 UNITS/ML SUBCUT SCH ×3 (08:00→18:00)
[2021-06-20 08:45] LABS: HEMATOCRIT. 28.6 % (36.0-48.0); HEMOGLOBIN. 9.3 g/dL (12.0-16.0); MEAN CORPUSCULAR HEMOGLOBIN 33.3 pg (28.0-32.0); MEAN CORPUSCULAR VOLUME 102.9 fL (81.0-99.0); MEAN PLATELET VOLUME 9.5 fl (7.4-10.4); PLATELET 94 x1000/uL (130-400); RED BLOOD CELL COUNT 2.78 mill/uL (4.2-5.4); RED CELL DISTRIBUTION WIDTH 21.9 % (11.6-14.6)
[2021-06-20 09:55] LABS: CHLORIDE 108 mEq/L (98-107)
[2021-06-20] MEDS: PROPRANOLOL HCL 10MG TABLET PO SCH ×2 (10:31→20:04)
[2021-06-20] MEDS: DULOXETINE HCL 30MG DR CAPSULE PO SCH ×2 (10:31→20:04)
[2021-06-20] MEDS: BUSPIRONE HCL 5MG TABLET PO SCH ×2 (10:31→20:04)
[2021-06-20] MEDS: LEVETIRACETAM 500MG TABLET PO SCH ×2 (10:31→20:04)
[2021-06-20 14:46] LABS: PLATELET ESTIMATE DECREASED
[2021-06-20] MEDS: TIZANIDINE HCL 2MG TABLET PO SCH (20:04)
[2021-06-20] MEDS: MORPHINE SULFATE 2 MG/ML CPJ (NOT FOR IM USE) IV PRN (20:06)
[2021-06-21] VITALS (12 sets, daily range): BP systolic 97–147; BP diastolic 48–67
[2021-06-21] MEDS: LACTULOSE 20G/30ML UDC PO SCH ×4 (01:43→17:43)
[2021-06-21] MEDS: RIFAXIMIN 550 MG TABLET PO SCH ×2 (05:46→17:43)
[2021-06-21 06:30] LABS: HEMATOCRIT. 26.6 % (36.0-48.0); HEMOGLOBIN. 8.9 g/dL (12.0-16.0); MEAN CORPUSCULAR HEMOGLOBIN 33.4 pg (28.0-32.0); MEAN CORPUSCULAR VOLUME 99.5 fL (81.0-99.0); MEAN PLATELET VOLUME 8.7 fl (7.4-10.4); PLATELET 99 x1000/uL (130-400); RED BLOOD CELL COUNT 2.67 mill/uL (4.2-5.4); RED CELL DISTRIBUTION WIDTH 21.4 % (11.6-14.6)
[2021-06-21] MEDS: INSULIN LISPRO 100 UNITS/ML SUBCUT SCH ×4 (08:00→21:00)
[2021-06-21] MEDS: BLOOD SUGAR DIAGNOSTIC STRIP TEST SCH ×4 (08:00→21:00)
[2021-06-21] MEDS: DULOXETINE HCL 30MG DR CAPSULE PO SCH ×2 (08:24→21:08)
[2021-06-21] MEDS: LEVETIRACETAM 500MG TABLET PO SCH ×2 (08:24→21:08)
[2021-06-21] MEDS: PROPRANOLOL HCL 10MG TABLET PO SCH ×2 (08:25→21:09)
[2021-06-21] MEDS: BUSPIRONE HCL 5MG TABLET PO SCH ×2 (08:25→21:08)
[2021-06-21 11:15] LABS: CHLORIDE 108 mEq/L (98-107)
[2021-06-21 14:29] LABS: PHOSPHORUS 4.1 mg/dL (2.5-4.9)
[2021-06-21] MEDS ORDERED: POTASSIUM CHLORIDE INJ 40 MEQ in DEXT 5% WATER 250 ML IV SCH (15:00)
[2021-06-21] MEDS ORDERED: HYDROCODONE/ACETAMINOPHEN 5/325MG TABLET PO PRN (16:45)
[2021-06-21] MEDS ORDERED: NALOXONE HCL 0.4MG/ML VIAL IV PRN (17:00)
[2021-06-21 17:58] LABS: PLATELET ESTIMATE DECREASED
[2021-06-21] MEDS: MORPHINE SULFATE 2 MG/ML CPJ (NOT FOR IM USE) IV PRN (18:45)
[2021-06-21] MEDS: SIMETHICONE 80MG TABLET CHEW PO PRN (21:09)
[2021-06-21] MEDS: TIZANIDINE HCL 2MG TABLET PO SCH (21:09)
[2021-06-22] VITALS (12 sets, daily range): BP systolic 97–148; BP diastolic 59–91
[2021-06-22] MEDS: MORPHINE SULFATE 2 MG/ML CPJ (NOT FOR IM USE) IV PRN ×3 (03:56→18:58)
[2021-06-22 05:59] LABS: CHLORIDE 108 mEq/L (98-107)
[2021-06-22] MEDS: RIFAXIMIN 550 MG TABLET PO SCH ×2 (06:03→18:57)
[2021-06-22] MEDS: LACTULOSE 20G/30ML UDC PO SCH ×5 (06:04→18:57)
[2021-06-22 06:25] LABS: HEMATOCRIT. 29.4 % (36.0-48.0); HEMOGLOBIN. 9.6 g/dL (12.0-16.0); MEAN CORPUSCULAR VOLUME 101.4 fL (81.0-99.0); MEAN PLATELET VOLUME 8.7 fl (7.4-10.4); PLATELET 139 x1000/uL (130-400); RED CELL DISTRIBUTION WIDTH 21.4 % (11.6-14.6)
[2021-06-22] MEDS: INSULIN LISPRO 100 UNITS/ML SUBCUT SCH ×4 (08:00→20:26)
[2021-06-22] MEDS: LEVETIRACETAM 500MG TABLET PO SCH ×2 (08:04→20:24)
[2021-06-22] MEDS: DULOXETINE HCL 30MG DR CAPSULE PO SCH ×2 (08:04→20:24)
[2021-06-22] MEDS: BUSPIRONE HCL 5MG TABLET PO SCH ×2 (08:04→20:24)
[2021-06-22] MEDS: BLOOD SUGAR DIAGNOSTIC STRIP TEST SCH ×4 (08:05→20:28)
[2021-06-22] MEDS: PROPRANOLOL HCL 10MG TABLET PO SCH ×2 (08:05→20:26)
[2021-06-22] MEDS ORDERED: POTASSIUM CHLORIDE 20MEQ TABLET SR PO NR (11:00)
[2021-06-22 12:47] LABS: PLATELET ESTIMATE NORMAL
[2021-06-22] MEDS: TIZANIDINE HCL 2MG TABLET PO SCH (20:24)
[2021-06-22] MEDS: ENOXAPARIN 30MG/0.3ML SYR SUBCUT SCH (20:26)
[2021-06-23] VITALS (12 sets, daily range): BP systolic 107–140; BP diastolic 56–102
[2021-06-23] MEDS: LACTULOSE 20G/30ML UDC PO SCH ×5 (00:07→23:36)
[2021-06-23] MEDS: MORPHINE SULFATE 2 MG/ML CPJ (NOT FOR IM USE) IV PRN ×2 (03:31→10:53)
[2021-06-23 05:49] LABS: HEMATOCRIT. 29.8 % (36.0-48.0); HEMOGLOBIN. 9.7 g/dL (12.0-16.0); MEAN CORPUSCULAR HEMOGLOBIN 32.8 pg (28.0-32.0); MEAN CORPUSCULAR VOLUME 100.3 fL (81.0-99.0); MEAN PLATELET VOLUME 8.2 fl (7.4-10.4); PLATELET 167 x1000/uL (130-400); RED BLOOD CELL COUNT 2.97 mill/uL (4.2-5.4); RED CELL DISTRIBUTION WIDTH 20.7 % (11.6-14.6)
[2021-06-23 06:04] LABS: CHLORIDE 110 mEq/L (98-107)
[2021-06-23] MEDS: BLOOD SUGAR DIAGNOSTIC STRIP TEST SCH ×4 (07:30→21:32)
[2021-06-23] MEDS: INSULIN LISPRO 100 UNITS/ML SUBCUT SCH ×4 (08:00→21:32)
[2021-06-23] MEDS: LEVETIRACETAM 500MG TABLET PO SCH ×2 (10:17→20:14)
[2021-06-23] MEDS: DULOXETINE HCL 30MG DR CAPSULE PO SCH ×2 (10:17→20:15)
[2021-06-23] MEDS: ENOXAPARIN 30MG/0.3ML SYR SUBCUT SCH ×2 (10:18→20:16)
[2021-06-23] MEDS: PROPRANOLOL HCL 10MG TABLET PO SCH ×2 (10:18→20:15)
[2021-06-23] MEDS: RIFAXIMIN 550 MG TABLET PO SCH ×2 (10:53→20:14)
[2021-06-23 12:48] LABS: BG BASE EXCESS -10.1 mmol/L (-2.0-2.0); BG CARBOXYHEMOGLOBIN 0.3 % (0.5-1.5); BG DEOXYHEMOGLOBIN 1.4 % (0.0-5.0); BG FRACTION INSPIRED OXYGEN 40; BG HCO3 ACT 17.5 mmol/L (22.0-26.0); BG METHEMOGLOBIN 0.3 % (0.0-1.5); BG OXYGEN SATURATION 98.6 % (92.0-98.5); BG PCO2 45.5 mmHg (35.0-45.0); BG PH 7.202 (7.350-7.450); BG PO2 148.4 mmHg (75.0-100.0); BG SAMPLE SITE RIGHT RADIAL; BG TOTAL HEMOGLOBIN 10.8 g/dL (12.0-18.0); BG VENT MODE NASAL CANNULA
[2021-06-23] MEDS ORDERED: SODIUM BICARBONATE 8.4% 1 MEQ/ML 50ML SYR IV NR (13:15)
[2021-06-23 13:27] LABS: PLATELET ESTIMATE NORMAL
[2021-06-23] MEDS ORDERED: POTASSIUM CHLORIDE 20MEQ TABLET SR PO SCH (14:00)
[2021-06-23] MEDS: NEOMYCIN 500MG TABLET PO SCH ×2 (16:32→21:32)
[2021-06-23] MEDS: ONDANSETRON HCL 4MG/2ML INJ IV PRN (16:47)
[2021-06-23 17:34] LABS: BG CARBOXYHEMOGLOBIN 0.3 % (0.5-1.5); BG DEOXYHEMOGLOBIN 2.8 % (0.0-5.0); BG FRACTION INSPIRED OXYGEN 5; BG HCO3 ACT 19.8 mmol/L (22.0-26.0); BG METHEMOGLOBIN 0.3 % (0.0-1.5); BG OXYGEN SATURATION 97.2 % (92.0-98.5); BG OXYHEMOGLOBIN 96.6 % (94.0-97.0); BG PCO2 40.4 mmHg (35.0-45.0); BG PH 7.309 (7.350-7.450); BG PO2 99.2 mmHg (75.0-100.0); BG SAMPLE SITE RIGHT RADIAL; BG VENT MODE NASAL CANNULA
[2021-06-23] MEDS: TIZANIDINE HCL 2MG TABLET PO SCH (20:14)
[2021-06-24] VITALS (12 sets, daily range): BP systolic 101–132; BP diastolic 50–82
[2021-06-24] MEDS: LACTULOSE 20G/30ML UDC PO SCH ×3 (05:28→18:13)
[2021-06-24] MEDS: NEOMYCIN 500MG TABLET PO SCH (05:28)
[2021-06-24 06:05] LABS: CHLORIDE 113 mEq/L (98-107)
[2021-06-24 06:15] LABS: HEMATOCRIT. 30.1 % (36.0-48.0); HEMOGLOBIN. 10.1 g/dL (12.0-16.0); MEAN CORPUSCULAR HEMOGLOBIN 33.2 pg (28.0-32.0); MEAN CORPUSCULAR VOLUME 98.8 fL (81.0-99.0); MEAN PLATELET VOLUME 8.2 fl (7.4-10.4); PLATELET 193 x1000/uL (130-400); RED BLOOD CELL COUNT 3.04 mill/uL (4.2-5.4); RED CELL DISTRIBUTION WIDTH 20.5 % (11.6-14.6)
[2021-06-24] MEDS: MORPHINE SULFATE 2 MG/ML CPJ (NOT FOR IM USE) IV PRN ×2 (06:34→15:52)
[2021-06-24] MEDS: INSULIN LISPRO 100 UNITS/ML SUBCUT SCH ×4 (08:00→21:00)
[2021-06-24] MEDS: BLOOD SUGAR DIAGNOSTIC STRIP TEST SCH (08:01)
[2021-06-24] MEDS: ENOXAPARIN 30MG/0.3ML SYR SUBCUT SCH ×2 (08:51→21:00)
[2021-06-24] MEDS: DULOXETINE HCL 30MG DR CAPSULE PO SCH ×2 (08:52→21:10)
[2021-06-24] MEDS: PROPRANOLOL HCL 10MG TABLET PO SCH ×2 (08:52→21:11)
[2021-06-24] MEDS: RIFAXIMIN 550 MG TABLET PO SCH ×2 (08:53→21:11)
[2021-06-24] MEDS: LEVETIRACETAM 500MG TABLET PO SCH ×2 (08:53→21:10)
[2021-06-24 10:05] LABS: PLATELET ESTIMATE NORMAL
[2021-06-24 11:59] LABS: BG BASE EXCESS -6.6 mmol/L (-2.0-2.0); BG CARBOXYHEMOGLOBIN 0.3 % (0.5-1.5); BG DEOXYHEMOGLOBIN 3.4 % (0.0-5.0); BG FRACTION INSPIRED OXYGEN 40; BG HCO3 ACT 18.7 mmol/L (22.0-26.0); BG METHEMOGLOBIN 0.2 % (0.0-1.5); BG OXYGEN SATURATION 96.6 % (92.0-98.5); BG OXYHEMOGLOBIN 96.1 % (94.0-97.0); BG PCO2 36.3 mmHg (35.0-45.0); BG PH 7.329 (7.350-7.450); BG PO2 95.3 mmHg (75.0-100.0); BG SAMPLE SITE RIGHT RADIAL; BG TOTAL HEMOGLOBIN 11.3 g/dL (12.0-18.0); BG TOTAL RESPIRATORY RATE 24 b/min; BG VENT MODE MASK - BIPAP
[2021-06-24 13:05] LABS: INR 1.5; PARTIAL THROMBOPLASTIN TIME 37.1 sec (23.4-31.0); PROTHROMBIN TIME 15.7 sec (9.6-11.0)
[2021-06-24 14:52] LABS: PHOSPHORUS 4.1 mg/dL (2.5-4.9)
[2021-06-24] MEDS ORDERED: POTASSIUM CHLORIDE INJ 40 MEQ in DEXT 5% WATER 250 ML IV NR (16:00)
[2021-06-24] MEDS: TIZANIDINE HCL 2MG TABLET PO SCH (21:10)
[2021-06-25] VITALS (9 sets, daily range): BP systolic 94–146; BP diastolic 29–54
[2021-06-25] MEDS: LACTULOSE 20G/30ML UDC PO SCH ×3 (01:44→13:30)
[2021-06-25] MEDS: INSULIN LISPRO 100 UNITS/ML SUBCUT SCH ×2 (08:00→13:00)
[2021-06-25 08:18] LABS: CHLORIDE 113 mEq/L (98-107)
[2021-06-25 08:23] LABS: HEMATOCRIT. 27.5 % (36.0-48.0); HEMOGLOBIN. 9.2 g/dL (12.0-16.0); MEAN CORPUSCULAR VOLUME 98.6 fL (81.0-99.0); MEAN PLATELET VOLUME 8.2 fl (7.4-10.4); PLATELET 172 x1000/uL (130-400); RED BLOOD CELL COUNT 2.79 mill/uL (4.2-5.4)
[2021-06-25] MEDS: PROPRANOLOL HCL 10MG TABLET PO SCH (09:00)
[2021-06-25] MEDS: ENOXAPARIN 30MG/0.3ML SYR SUBCUT SCH (09:00)
[2021-06-25 09:16] LABS: BG BASE EXCESS -5.8 mmol/L (-2.0-2.0); BG CARBOXYHEMOGLOBIN 0.4 % (0.5-1.5); BG DEOXYHEMOGLOBIN 3.5 % (0.0-5.0); BG FRACTION INSPIRED OXYGEN 40; BG HCO3 ACT 17.6 mmol/L (22.0-26.0); BG METHEMOGLOBIN 0.2 % (0.0-1.5); BG OXYGEN SATURATION 96.5 % (92.0-98.5); BG OXYHEMOGLOBIN 95.9 % (94.0-97.0); BG PCO2 27.9 mmHg (35.0-45.0); BG PH 7.417 (7.350-7.450); BG PO2 87.7 mmHg (75.0-100.0); BG SAMPLE SITE RIGHT RADIAL; BG TOTAL HEMOGLOBIN 10.5 g/dL (12.0-18.0); BG VENT MODE MASK - BIPAP
[2021-06-25] MEDS ORDERED: MORPHINE SULFATE 2 MG/ML CPJ (NOT FOR IM USE) IV PRN (09:45)
[2021-06-25] MEDS ORDERED: POTASSIUM CHLORIDE INJ 40 MEQ in DEXT 5% WATER 250 ML IV SCH (10:00)
[2021-06-25] MEDS: DULOXETINE HCL 30MG DR CAPSULE PO SCH (10:01)
[2021-06-25] MEDS: LEVETIRACETAM 500MG TABLET PO SCH (10:01)
[2021-06-25] MEDS: RIFAXIMIN 550 MG TABLET PO SCH (10:01)
[2021-06-25 10:48] LABS: PLATELET ESTIMATE NORMAL
[2021-06-25] MEDS ORDERED: POTASSIUM CHLORIDE 20MEQ TABLET SR PO SCH (13:15)
[2021-06-25] MEDS: ALBUMIN HUMAN 12.5GM/50ML (25%) IV SCH ×2 (13:18→13:30)
== END 2021-06-25 18:20 | DRG 870 ==
LOC: ER 23:54 → MICUSO 05-15 05:10 → EDBEDREQSVC 05-15 05:13 → EDBEDREQTM 05-15 05:13 → EDBEDREQ 05-15 05:13 → CVICU 05-17 21:49 → 5EST 06-07 10:58
PROVIDERS: ADMIT Internal Medicine; ATTEND Internal Medicine
PROC: 0BH17EZ Insertion of Endotracheal Airway into Trachea, Via Natural or Artificial Opening (ICD-10-PCS; 2021-05-15)
PROC: 5A1955Z Respiratory Ventilation, Greater than 96 Consecutive Hours (ICD-10-PCS; 2021-05-15)
PROC: 05HY33Z Insertion of Infusion Device into Upper Vein, Percutaneous Approach (ICD-10-PCS; 2021-05-17)
PROC: 0W993ZZ Drainage of Right Pleural Cavity, Percutaneous Approach (ICD-10-PCS; 2021-05-18)
PROC: 5A1955Z Respiratory Ventilation, Greater than 96 Consecutive Hours (ICD-10-PCS; principal; 2021-05-21)
PROC: 0BH17EZ Insertion of Endotracheal Airway into Trachea, Via Natural or Artificial Opening (ICD-10-PCS; 2021-05-21)
PROC: 0W993ZZ Drainage of Right Pleural Cavity, Percutaneous Approach (ICD-10-PCS; 2021-05-27)
PROC: 5A09557 Assistance with Respiratory Ventilation, Greater than 96 Consecutive Hours, Continuous Positive Airway Pressure (ICD-10-PCS; 2021-05-28)
PROC: 02HV33Z Insertion of Infusion Device into Superior Vena Cava, Percutaneous Approach (ICD-10-PCS; 2021-05-29)
PROC: B548ZZA Ultrasonography of Superior Vena Cava, Guidance (ICD-10-PCS; 2021-05-29)
PROC: 4A10X4Z Monitoring of Central Nervous Electrical Activity, External Approach (ICD-10-PCS; 2021-05-31)
PROC: 5A09357 Assistance with Respiratory Ventilation, Less than 24 Consecutive Hours, Continuous Positive Airway Pressure (ICD-10-PCS; 2021-06-02)
PROC: 0W993ZZ Drainage of Right Pleural Cavity, Percutaneous Approach (ICD-10-PCS; 2021-06-03)
PROC: 5A09357 Assistance with Respiratory Ventilation, Less than 24 Consecutive Hours, Continuous Positive Airway Pressure (ICD-10-PCS; 2021-06-04)
PROC: 5A09557 Assistance with Respiratory Ventilation, Greater than 96 Consecutive Hours, Continuous Positive Airway Pressure (ICD-10-PCS; 2021-06-06)
PROC: 0W993ZZ Drainage of Right Pleural Cavity, Percutaneous Approach (ICD-10-PCS; 2021-06-14)
PROC: 30233K1 Transfusion of Nonautologous Frozen Plasma into Peripheral Vein, Percutaneous Approach (ICD-10-PCS; 2021-06-14)
PROC: 30233N1 Transfusion of Nonautologous Red Blood Cells into Peripheral Vein, Percutaneous Approach (ICD-10-PCS; 2021-06-15)
PROC: 30233R1 Transfusion of Nonautologous Platelets into Peripheral Vein, Percutaneous Approach (ICD-10-PCS; 2021-06-24)
PROC: 0W993ZZ Drainage of Right Pleural Cavity, Percutaneous Approach (ICD-10-PCS; 2021-06-25)
DX: A41.9 Sepsis, unspecified organism (principal); J96.01 Acute respiratory failure with hypoxia; E43 Unspecified severe protein-calorie malnutrition; G93.41 Metabolic encephalopathy; K72.00 Acute and subacute hepatic failure without coma; J15.9 Unspecified bacterial pneumonia; T81.31XA Disruption of external operation (surgical) wound, not elsewhere classified, initial encounter; J90 Pleural effusion, not elsewhere classified; E87.0 Hyperosmolality and hypernatremia; I82.611 Acute embolism and thrombosis of superficial veins of right upper extremity; J94.2 Hemothorax; K76.6 Portal hypertension; N17.9 Acute kidney failure, unspecified; R18.8 Other ascites; R65.20 Severe sepsis without septic shock; D69.6 Thrombocytopenia, unspecified; J39.8 Other specified diseases of upper respiratory tract; K72.90 Hepatic failure, unspecified without coma; K74.60 Unspecified cirrhosis of liver; Z20.822 Contact with and (suspected) exposure to COVID-19; I10 Essential (primary) hypertension; R74.01 Elevation of levels of liver transaminase levels; G40.909 Epilepsy, unspecified, not intractable, without status epilepticus; B37.9 Candidiasis, unspecified; E87.5 Hyperkalemia; E66.01 Morbid (severe) obesity due to excess calories; G62.9 Polyneuropathy, unspecified; B36.9 Superficial mycosis, unspecified; D53.9 Nutritional anemia, unspecified; E87.6 Hypokalemia; E87.70 Fluid overload, unspecified; G43.909 Migraine, unspecified, not intractable, without status migrainosus; K72.10 Chronic hepatic failure without coma; M79.7 Fibromyalgia; Y83.8 Other surgical procedures as the cause of abnormal reaction of the patient, or of later complication, without mention of misadventure at the time of the procedure; Z82.49 Family history of ischemic heart disease and other diseases of the circulatory system; Z88.8 Allergy status to other drugs, medicaments and biological substances; Z79.891 Long term (current) use of opiate analgesic; Z79.899 Other long term (current) drug therapy; Z79.890 Hormone replacement therapy; Z68.37 Body mass index [BMI] 37.0-37.9, adult; Z78.1 Physical restraint status; Z90.49 Acquired absence of other specified parts of digestive tract; Z98.84 Bariatric surgery status; Y92.89 Other specified places as the place of occurrence of the external cause; R21 Rash and other nonspecific skin eruption; G58.9 Mononeuropathy, unspecified
CPT/HCPCS: 31500; 32555; 36415; 36600; 70490; 70551; 71045; 71250; 71270; 72141; 74178; 76700; 76705; 76937; 80048; 80053; 80061; 80076; 80305; 80320; 81003; 82040; 82105; 82140; 82248; 82375; 82378; 82746; 82805; 82962; 83036; 83605; 83615; 83735; 83880; 84100; 84132; 84134; 84145; 84425; 84443; 84478; 84484; 84703; 85025; 85379; 86705; 86709; 86803; 86850; 86900; 86920; 86927; 87070; 87340; 87426; 88108; 88312; 90686; 92610; 93005; 93306; 93970; 94002; 94003; 94640; 94660; 95816; 97110; 97166; 97168; 97530; 97535; 99291; A6261; C1725; C1769; C9113; J0330; J0692; J0696; J1200; J1650; J1815; J1940; J1953; J2060; J2185; J2248; J2250; J2270; J2405; J2704; J2920; J2930; J3010; J3430; J3480; J3490; J7040; J7050; J7060; J7070; P9016; P9017; P9034; P9047; Q9967; P9036